=== PATIENT | male | born 1955 | race Caucasian/White ===

== ENCOUNTER 2016-06-08 20:33 | Inpatient (IN) | payer OTHER ==
[~2016-06-08] VITALS: Ht 188 cm; Wt 140.6 kg
[~2016-06-08 20:33] MED LIST: ALLO300T2 PO; ASPI-1035 PO; BENA10TA3 PO; FOLI-43 PO; HYDR12.54 PO; LISI-604 PO; MULT-1146 PO; Multivitamins,Ther W-Minerals PO; Nifedipine PO; OXYB5TAB11 PO; PANT40TA4 PO; TAMS-11 PO; THIA100T13 PO; TOLTERODINE PO
[2016-06-08] MEDS ORDERED: LORAZEPAM 2MG/ML CPJ IV ONE (22:45)
[2016-06-08 23:37] LABS: HEMATOCRIT. 36.6 % (42.0-52.0); HEMOGLOBIN. 12.4 g/dL (14.0-18.0); MEAN CORPUSCULAR HEMOGLOBIN 35.8 pg (28.0-32.0); MEAN CORPUSCULAR HGB CONC 33.8 g/dL (31.0-37.0); MEAN CORPUSCULAR VOLUME 105.7 fL (80.0-94.0); MEAN PLATELET VOLUME 8.9 fl (7.4-10.4); RED BLOOD CELL COUNT 3.47 mill/uL (4.7-6.1); RED CELL DISTRIBUTION WIDTH 15.3 % (11.6-14.6); WHITE BLOOD COUNT 4.2 x1000/uL (4.5-11.0)
[2016-06-08 23:46] LABS: DIFFERENTIAL COMMENT 1; PLATELET 50 x1000/uL (130-400)
[2016-06-08 23:54] LABS: AMMONIA 24 uMol/L (<32)
[2016-06-08 23:58] LABS: ALANINE AMINOTRANSFERASE 15 IU/L (13-61); ALBUMIN 2.3 g/dL (3.4-5.0); ANION GAP 12; CALCIUM 7.5 mg/dL (8.5-10.1); CARBON DIOXIDE 30 mEq/L (21-32); CHLORIDE 104 mEq/L (98-107); ETHANOL BLOOD 258 mg/dL; INDEX HEMOLYSI 1 (1-3); INDEX ICTERIC 1 (1-4); INDEX LIPEMIC 1 (1-3); NT PRO B-TYPE NATRIURETIC PEP 8 pg/mL (5-125); TROPONIN I < 0.02 ng/mL (0.00-0.04); UREA NITROGEN BLOOD 6 mg/dL (7-21); eGFR > 60 mL/min (>60)
[2016-06-08 23:58] LABS: CLARITY URINE CLEAR (CLEAR); COLOR URINE DARK YELLOW (YELLOW); GLUCOSE URINE NEGATIVE (NEGATIVE); KETONES URINE NEGATIVE (NEGATIVE); LEUKOCYTE ESTERASE URINE NEGATIVE (NEGATIVE); NITRITE URINE NEGATIVE (NEGATIVE); OCCULT BLOOD URINE NEGATIVE (NEGATIVE); PH URINE 5.5 (4.5-8.0); PROTEIN URINE NEGATIVE (NEGATIVE); SPECIFIC GRAVITY URINE 1.016 (1.005-1.030)
[2016-06-09] VITALS (7 sets, daily range): BP systolic 112–188; BP diastolic 74–104
[2016-06-09 00:42] LABS: BACTERIA URINE NONE SEEN; RBC URINE 0-2 /hpf (0-2); SQUAMOUS EPITHELIAL CELL URINE FEW /lpf (RARE/1+); WBC URINE 0-2 /hpf (0-2)
[2016-06-09 01:08] LABS: *AMPHETAMINES SCREEN URINE NEGATIVE (NEGATIVE); *BARBITURATES SCREEN URINE NEGATIVE (NEGATIVE); *BENZODIAZEPINES SCREEN URINE NEGATIVE (NEGATIVE); *COCAINE SCREEN URINE NEGATIVE (NEGATIVE); CANNABINOID URINE SCREEN NEGATIVE (NEGATIVE); ECSTASY MDMA SCREEN URINE NEGATIVE (NEGATIVE); METHADONE URINE SCREEN NEGATIVE (NEGATIVE); OPIATES URINE SCREEN NEGATIVE (NEGATIVE); PHENCYCLIDINE URINE SCREEN NEGATIVE (NEGATIVE)
[2016-06-09 03:05] LABS: ATYPICAL LYMPHOCYTES 1
[2016-06-09 03:07] LABS: PLATELET ESTIMATE DECREASED
[2016-06-09 07:06] LABS: HEPATITIS B SURFACE ANTIGEN NEGATIVE
[2016-06-09 07:20] LABS: HEPATITIS C VIR.AB 0.07 INDEXVAL (0.00-0.80)
[2016-06-09 07:34] LABS: HEPATITIS B CORE AB IGM NEGATIVE
[2016-06-09 07:36] LABS: HEPATITIS A AB IGM NEGATIVE (NEGATIVE)
[2016-06-09 07:52] LABS: ALANINE AMINOTRANSFERASE 14 IU/L (13-61); ALBUMIN 2.3 g/dL (3.4-5.0); ANION GAP 14; CALCIUM 7.4 mg/dL (8.5-10.1); CARBON DIOXIDE 27 mEq/L (21-32); CHLORIDE 104 mEq/L (98-107); INDEX HEMOLYSI 1 (1-3); INDEX ICTERIC 1 (1-4); INDEX LIPEMIC 1 (1-3); eGFR > 60 mL/min (>60)
[2016-06-09 07:53] LABS: UREA NITROGEN BLOOD 4 mg/dL (7-21)
[2016-06-09 07:56] LABS: HEMATOCRIT. 37.1 % (42.0-52.0); HEMOGLOBIN. 12.7 g/dL (14.0-18.0); MEAN CORPUSCULAR HEMOGLOBIN 35.8 pg (28.0-32.0); MEAN CORPUSCULAR HGB CONC 34.3 g/dL (31.0-37.0); MEAN CORPUSCULAR VOLUME 104.4 fL (80.0-94.0); MEAN PLATELET VOLUME 9.6 fl (7.4-10.4); RED BLOOD CELL COUNT 3.55 mill/uL (4.7-6.1); RED CELL DISTRIBUTION WIDTH 15.5 % (11.6-14.6); WHITE BLOOD COUNT 3.4 x1000/uL (4.5-11.0)
[2016-06-09 08:12] LABS: DIFFERENTIAL COMMENT 1
[2016-06-09 09:12] LABS: INR 1.3; PROTHROMBIN TIME 13.4 sec
[2016-06-09] MEDS ORDERED: CLONIDINE 0.1MG TABLET PO PRN (12:15)
[2016-06-09] MEDS ORDERED: ONDANSETRON HCL 4MG/2ML VIAL IV PRN (12:15)
[2016-06-09] MEDS ORDERED: IPRATROPIUM/ALBUTEROL 0.5-3(2.5)MG/3ML NEB INH PRN (12:15)
[2016-06-09] MEDS ORDERED: DIPHENHYDRAMINE 50MG/ML VIAL IV PRN (12:15)
[2016-06-09] MEDS: ACETAMINOPHEN 325MG TABLET PO PRN ×2 (13:38→20:23)
[2016-06-09] MEDS: OXYBUTYNIN CHLORIDE 5MG TABLET PO SCH (13:39)
[2016-06-09 15:29] LABS: PLATELET ESTIMATE MARKEDLY DECREASED
[2016-06-09] MEDS: ALLOPURINOL 300 MG TABLET PO SCH (17:36)
[2016-06-10] VITALS: BP 108/65
[2016-06-10 04:00] VITALS: BP 115/74
[2016-06-10 07:36] LABS: HEMATOCRIT. 37.7 % (42.0-52.0); MEAN CORPUSCULAR HEMOGLOBIN 35.9 pg (28.0-32.0); MEAN CORPUSCULAR HGB CONC 34.6 g/dL (31.0-37.0); MEAN CORPUSCULAR VOLUME 103.9 fL (80.0-94.0); MEAN PLATELET VOLUME 9.4 fl (7.4-10.4); RED BLOOD CELL COUNT 3.63 mill/uL (4.7-6.1); RED CELL DISTRIBUTION WIDTH 15.2 % (11.6-14.6); WHITE BLOOD COUNT 3.3 x1000/uL (4.5-11.0)
[2016-06-10 08:00] VITALS: BP 124/74
[2016-06-10 08:00] LABS: PLATELET 48 x1000/uL (130-400)
[2016-06-10 08:00] LABS: DIFFERENTIAL COMMENT 1
[2016-06-10 08:03] LABS: PLATELET 43 x1000/uL (130-400)
[2016-06-10 08:24] LABS: ALANINE AMINOTRANSFERASE 13 IU/L (13-61); ALBUMIN 2.2 g/dL (3.4-5.0); ANION GAP 15; CALCIUM 7.8 mg/dL (8.5-10.1); CARBON DIOXIDE 26 mEq/L (21-32); CHLORIDE 101 mEq/L (98-107); INDEX HEMOLYSI 1 (1-3); INDEX ICTERIC 2 (1-4); INDEX LIPEMIC 1 (1-3); UREA NITROGEN BLOOD 5 mg/dL (7-21); eGFR > 60 mL/min (>60)
[2016-06-10 08:27] LABS: NT PRO B-TYPE NATRIURETIC PEP 44 pg/mL (5-125); TROPONIN I < 0.02 ng/mL (0.00-0.04)
[2016-06-10] MEDS: OXYBUTYNIN CHLORIDE 5MG TABLET PO SCH (08:33)
[2016-06-10] MEDS: ALLOPURINOL 300 MG TABLET PO SCH ×2 (08:33→17:23)
[2016-06-10] MEDS: PANTOPRAZOLE 40MG DR TABLET PO SCH (08:34)
[2016-06-10] MEDS: LISINOPRIL 20MG TABLET PO SCH (08:34)
[2016-06-10] MEDS: TAMSULOSIN HCL 0.4MG SR CAPSULE PO SCH (08:34)
[2016-06-10] MEDS ORDERED: FOLIC ACID 1MG TABLET PO SCH (09:00)
[2016-06-10] MEDS ORDERED: BENAZEPRIL 10MG TABLET PO SCH (09:00)
[2016-06-10] MEDS ORDERED: NON FORMULARY PATIENT HOME MED EA XX SCH (09:45)
[2016-06-10] MEDS ORDERED: SODIUM CHLORIDE 0.45% 1,000 ML IV SCH (10:00)
[2016-06-10] MEDS ORDERED: MULTIVITAMINS,THER W-MINERALS TABLET PO SCH (10:00)
[2016-06-10] MEDS ORDERED: THIAMINE HCL 100MG TABLET PO SCH (10:00)
[2016-06-10 10:53] LABS: PLATELET ESTIMATE DECREASED
[2016-06-10 12:00] VITALS: BP 136/88
[2016-06-10] MEDS: ACETAMINOPHEN 325MG TABLET PO PRN (13:41)
[2016-06-10] MEDS ORDERED: FOLIC ACID 1 MG, THIAMINE HCL 100 MG, MVI, ADULT NO.1 10 ML in DEXTROSE 5% WATER 1,000 ML IV NR ×4 (15:00)
[2016-06-10] MEDS: CHLORDIAZEPOXIDE 5 MG CAPSULE PO SCH ×2 (15:03→21:03)
[2016-06-10 16:00] VITALS: BP 106/71
[2016-06-10 20:00] VITALS: BP 102/57
[2016-06-10] MEDS: HYDROCODONE/ACETAMINOPHEN 5/325MG TABLET PO PRN (22:03)
[2016-06-11] VITALS (7 sets, daily range): BP systolic 89–130; BP diastolic 57–81
[2016-06-11] MEDS: CHLORDIAZEPOXIDE 5 MG CAPSULE PO SCH ×3 (05:34→21:33)
[2016-06-11 07:24] LABS: CHLORIDE 100 mEq/L (98-107); INDEX HEMOLYSI 1 (1-3); INDEX ICTERIC 2 (1-4); INDEX LIPEMIC 1 (1-3)
[2016-06-11 07:32] LABS: ALBUMIN 2.3 g/dL (3.4-5.0); ANION GAP 14; CALCIUM 7.8 mg/dL (8.5-10.1); CARBON DIOXIDE 25 mEq/L (21-32); UREA NITROGEN BLOOD 7 mg/dL (7-21); eGFR > 60 mL/min (>60)
[2016-06-11 07:33] LABS: ALANINE AMINOTRANSFERASE 13 IU/L (13-61); MAGNESIUM 1.4 mg/dL (1.8-2.4)
[2016-06-11] MEDS: OXYBUTYNIN CHLORIDE 5MG TABLET PO SCH (07:53)
[2016-06-11] MEDS: PANTOPRAZOLE 40MG DR TABLET PO SCH (07:53)
[2016-06-11] MEDS: ALLOPURINOL 300 MG TABLET PO SCH ×2 (07:53→17:31)
[2016-06-11] MEDS: TAMSULOSIN HCL 0.4MG SR CAPSULE PO SCH (07:53)
[2016-06-11] MEDS: LISINOPRIL 20MG TABLET PO SCH (07:53)
[2016-06-11] MEDS ORDERED: POTASSIUM CHLORIDE 20MEQ TABLET SR PO NR (12:00)
[2016-06-11] MEDS ORDERED: LORAZEPAM 1MG TABLET PO PRN (13:00)
[2016-06-11] MEDS ORDERED: LORAZEPAM 2MG/ML CPJ IV PRN (13:15)
[2016-06-11] MEDS: LACTULOSE 20G/30ML UDC PO SCH ×2 (13:20→21:33)
[2016-06-11] MEDS ORDERED: MAGNESIUM 2 G PREMIX 50 ML IV NR (13:30)
[2016-06-11 13:53] LABS: ALPHA FETOPROTEIN TUMOR MARKER 4.4 ng/mL (0.0-8.3)
[2016-06-11] MEDS: SODIUM CHLORIDE 0.9% 1,000 ML IV SCH (13:58)
[2016-06-11 14:48] LABS: AMMONIA 25 uMol/L (<32); INDEX HEMOLYSI 2 (1-3)
[2016-06-11] MEDS ORDERED: LORAZEPAM 2MG/ML CPJ IV NR (17:30)
[2016-06-11] MEDS: METOPROLOL TARTRATE 25MG TABLET PO SCH (21:00)
[2016-06-11] MEDS: LORAZEPAM 2MG/ML CPJ IV PRN (23:50)
[2016-06-12 00:16] VITALS: BP 98/63
[2016-06-12] MEDS: HYDROCODONE/ACETAMINOPHEN 5/325MG TABLET PO PRN (01:27)
[2016-06-12] MEDS: LORAZEPAM 2MG/ML CPJ IV PRN ×2 (03:27→13:16)
[2016-06-12] MEDS ORDERED: HALOPERIDOL LACTATE 5MG/ML VIAL IM PRN (05:30)
[2016-06-12 05:39] VITALS: BP 96/67
[2016-06-12] MEDS: CHLORDIAZEPOXIDE 5 MG CAPSULE PO SCH ×3 (05:43→21:01)
[2016-06-12] MEDS: LACTULOSE 20G/30ML UDC PO SCH ×4 (05:43→20:53)
[2016-06-12 05:48] LABS: HEMOGLOBIN. 12.3 g/dL (14.0-18.0); MEAN CORPUSCULAR HEMOGLOBIN 35.9 pg (28.0-32.0); MEAN CORPUSCULAR HGB CONC 34.2 g/dL (31.0-37.0); MEAN PLATELET VOLUME 9.5 fl (7.4-10.4); PLATELET 54 x1000/uL (130-400); RED BLOOD CELL COUNT 3.43 mill/uL (4.7-6.1); RED CELL DISTRIBUTION WIDTH 15.3 % (11.6-14.6); WHITE BLOOD COUNT 3.6 x1000/uL (4.5-11.0)
[2016-06-12 06:15] LABS: DIFFERENTIAL COMMENT 1
[2016-06-12 06:31] LABS: ALBUMIN 2.4 g/dL (3.4-5.0); ANION GAP 17; CARBON DIOXIDE 23 mEq/L (21-32); CHLORIDE 102 mEq/L (98-107); INDEX HEMOLYSI 1 (1-3); INDEX ICTERIC 2 (1-4); INDEX LIPEMIC 1 (1-3)
[2016-06-12 06:40] LABS: ALANINE AMINOTRANSFERASE 15 IU/L (13-61); MAGNESIUM 1.6 mg/dL (1.8-2.4); UREA NITROGEN BLOOD 9 mg/dL (7-21); eGFR > 60 mL/min (>60)
[2016-06-12 08:00] VITALS: BP 146/93
[2016-06-12] MEDS: PANTOPRAZOLE 40MG DR TABLET PO SCH (10:25)
[2016-06-12] MEDS: OXYBUTYNIN CHLORIDE 5MG TABLET PO SCH (10:25)
[2016-06-12] MEDS: ALLOPURINOL 300 MG TABLET PO SCH ×2 (10:25→17:29)
[2016-06-12] MEDS: TAMSULOSIN HCL 0.4MG SR CAPSULE PO SCH (10:26)
[2016-06-12] MEDS: METOPROLOL TARTRATE 25MG TABLET PO SCH ×2 (10:26→20:54)
[2016-06-12] MEDS: LISINOPRIL 20MG TABLET PO SCH (10:26)
[2016-06-12] MEDS ORDERED: POTASSIUM CHLORIDE 20 MEQ/PACKET PO NR (10:31)
[2016-06-12 11:07] LABS: GIANT PLATELETS FEW
[2016-06-12 11:08] LABS: PLATELET ESTIMATE MARKEDLY DECREASED
[2016-06-12 12:00] VITALS: BP 124/103
[2016-06-12] MEDS ORDERED: MAGNESIUM 2 G PREMIX 50 ML IV NR (12:00)
[2016-06-12 13:31] LABS: IMMUNOGLOBULIN A 1105 mg/dL (61-437); IMMUNOGLOBULIN G 1375 mg/dL (700-1600); IMMUNOGLOBULIN M 193 mg/dL (20-172)
[2016-06-12 15:55] VITALS: BP 120/78
[2016-06-12 20:00] VITALS: BP 121/72
[2016-06-13] VITALS: BP 119/83
[2016-06-13] MEDS: SODIUM CHLORIDE 0.9% 1,000 ML IV SCH ×3 (00:23→21:04)
[2016-06-13 04:00] VITALS: BP 124/80
[2016-06-13] MEDS: LACTULOSE 20G/30ML UDC PO SCH ×3 (05:56→21:02)
[2016-06-13] MEDS: CHLORDIAZEPOXIDE 5 MG CAPSULE PO SCH ×3 (05:56→21:03)
[2016-06-13 06:19] LABS: CHLORIDE 103 mEq/L (98-107); INDEX HEMOLYSI 1 (1-3); INDEX ICTERIC 1 (1-4); INDEX LIPEMIC 1 (1-3)
[2016-06-13 06:26] LABS: HEMOGLOBIN. 12.1 g/dL (14.0-18.0); MEAN CORPUSCULAR HEMOGLOBIN 36.2 pg (28.0-32.0); MEAN CORPUSCULAR HGB CONC 33.7 g/dL (31.0-37.0); MEAN CORPUSCULAR VOLUME 107.5 fL (80.0-94.0); MEAN PLATELET VOLUME 9.7 fl (7.4-10.4); PLATELET 52 x1000/uL (130-400); RED BLOOD CELL COUNT 3.35 mill/uL (4.7-6.1); RED CELL DISTRIBUTION WIDTH 15.2 % (11.6-14.6); WHITE BLOOD COUNT 3.6 x1000/uL (4.5-11.0)
[2016-06-13 06:37] LABS: ALANINE AMINOTRANSFERASE 15 IU/L (13-61); ALBUMIN 2.1 g/dL (3.4-5.0); ANION GAP 12; CALCIUM 7.6 mg/dL (8.5-10.1); CARBON DIOXIDE 26 mEq/L (21-32); MAGNESIUM 1.8 mg/dL (1.8-2.4); UREA NITROGEN BLOOD 8 mg/dL (7-21); eGFR > 60 mL/min (>60)
[2016-06-13 07:21] LABS: DIFFERENTIAL COMMENT 1
[2016-06-13 08:00] VITALS: BP 145/82
[2016-06-13] MEDS: ALLOPURINOL 300 MG TABLET PO SCH ×2 (08:56→17:38)
[2016-06-13] MEDS: TAMSULOSIN HCL 0.4MG SR CAPSULE PO SCH (08:57)
[2016-06-13] MEDS: LISINOPRIL 20MG TABLET PO SCH (08:58)
[2016-06-13] MEDS: PANTOPRAZOLE 40MG DR TABLET PO SCH (08:59)
[2016-06-13] MEDS: METOPROLOL TARTRATE 25MG TABLET PO SCH ×2 (08:59→21:00)
[2016-06-13] MEDS: HYDROCODONE/ACETAMINOPHEN 5/325MG TABLET PO PRN ×2 (08:59→13:07)
[2016-06-13] MEDS: OXYBUTYNIN CHLORIDE 5MG TABLET PO SCH (08:59)
[2016-06-13] MEDS ORDERED: POTASSIUM CHLORIDE 20MEQ TABLET SR PO NR (11:00)
[2016-06-13 12:00] VITALS: BP 123/82
[2016-06-13 13:12] LABS: PLATELET ESTIMATE DECREASED
[2016-06-13 16:00] VITALS: BP 140/90
[2016-06-13 20:00] VITALS: BP 106/79
[2016-06-14] VITALS: BP 95/58
[2016-06-14 04:00] VITALS: BP 110/73
[2016-06-14] MEDS: LACTULOSE 20G/30ML UDC PO SCH ×2 (06:00→15:51)
[2016-06-14] MEDS: CHLORDIAZEPOXIDE 5 MG CAPSULE PO SCH ×2 (06:51→15:52)
[2016-06-14 08:00] VITALS: BP 144/97
[2016-06-14] MEDS: LISINOPRIL 20MG TABLET PO SCH (09:00)
[2016-06-14] MEDS: METOPROLOL TARTRATE 25MG TABLET PO SCH (09:00)
[2016-06-14] MEDS: SODIUM CHLORIDE 0.9% 1,000 ML IV SCH (09:21)
[2016-06-14] MEDS: TAMSULOSIN HCL 0.4MG SR CAPSULE PO SCH (09:28)
[2016-06-14] MEDS: HYDROCODONE/ACETAMINOPHEN 5/325MG TABLET PO PRN (09:28)
[2016-06-14] MEDS: OXYBUTYNIN CHLORIDE 5MG TABLET PO SCH (09:29)
[2016-06-14] MEDS: ALLOPURINOL 300 MG TABLET PO SCH ×2 (09:29→15:51)
[2016-06-14] MEDS: PANTOPRAZOLE 40MG DR TABLET PO SCH (09:29)
[2016-06-14 12:00] VITALS: BP 113/88
[2016-06-14 13:56] VITALS: BP 144/97
== END 2016-06-14 17:31 | disposition home health service (06) | DRG 280 ==
LOC: ER 20:35 → 7WST 06-09 02:17
PROVIDERS: ADMIT Internal Medicine; ATTEND Internal Medicine
PROC: 05H933Z Insertion of Infusion Device into Right Brachial Vein, Percutaneous Approach (ICD-10-PCS; principal; 2016-06-12)
PROC: B54MZZA Ultrasonography of Right Upper Extremity Veins, Guidance (ICD-10-PCS; 2016-06-12)
DX: K70.31 Alcoholic cirrhosis of liver with ascites (principal); G93.40 Encephalopathy, unspecified; D61.818 Other pancytopenia; E46 Unspecified protein-calorie malnutrition; K76.6 Portal hypertension; I11.9 Hypertensive heart disease without heart failure; K86.0 Alcohol-induced chronic pancreatitis; Z68.41 Body mass index [BMI] 40.0-44.9, adult; E83.42 Hypomagnesemia; E83.51 Hypocalcemia; E66.01 Morbid (severe) obesity due to excess calories; R00.0 Tachycardia, unspecified; K29.20 Alcoholic gastritis without bleeding; E86.0 Dehydration; D53.9 Nutritional anemia, unspecified; E87.6 Hypokalemia; E78.00 Pure hypercholesterolemia, unspecified; M10.00 Idiopathic gout, unspecified site; F10.239 Alcohol dependence with withdrawal, unspecified; Y90.9 Presence of alcohol in blood, level not specified; E11.65 Type 2 diabetes mellitus with hyperglycemia; E78.5 Hyperlipidemia, unspecified
CPT/HCPCS: 36415; 36569; 70450; 71010; 74176; 76937; 80053; 80305; 81001; 82040; 82105; 82140; 82784; 83036; 83735; 83880; 83921; 84443; 84484; 85025; 85049; 85610; 85730; 86334; 86705; 86709; 86803; 87040; 87086; 87186; 87340; 93005; 93306; 93970; 96374; 97162; 99285; C1725; C1893; G0482; J1630; J2060; J3411; J3475; J3490; J7030; J7070

== ENCOUNTER 2016-08-11 16:43 | Inpatient (IN) | payer OTHER ==
[~2016-08-11] VITALS: Ht 190.5 cm; Wt 141.5 kg
[~2016-08-11 16:43] MED LIST changes: -BENA10TA3 PO; -HYDR12.54 PO; -OXYB5TAB11 PO; -TOLTERODINE PO
[2016-08-11 18:04] LABS: CHLORIDE 101 mEq/L (98-107); HEMATOCRIT. 39.1 % (42.0-52.0); HEMOGLOBIN. 13.7 g/dL (14.0-18.0); MEAN CORPUSCULAR HEMOGLOBIN 35.6 pg (28.0-32.0); MEAN CORPUSCULAR VOLUME 101.8 fL (80.0-94.0); RED BLOOD CELL COUNT 3.84 mill/uL (4.7-6.1); RED CELL DISTRIBUTION WIDTH 15.5 % (11.6-14.6)
[2016-08-11 18:07] LABS: CARBON DIOXIDE 29 mEq/L (21-32)
[2016-08-11 18:08] LABS: INR 1.4; PROTHROMBIN TIME 14.5 sec
[2016-08-11 18:10] LABS: ETHANOL BLOOD 197 mg/dL
[2016-08-11 18:39] LABS: PLATELET ESTIMATE MARKEDLY DECREASED
[2016-08-11 18:41] LABS: MEAN PLATELET VOLUME 9.9 fl (7.4-10.4); PLATELET 38 x1000/uL (130-400)
[2016-08-11 19:35] LABS: CLARITY URINE CLEAR (CLEAR); COLOR URINE ORANGE (YELLOW); GLUCOSE URINE NEGATIVE (NEGATIVE); KETONES URINE TRACE (NEGATIVE); LEUKOCYTE ESTERASE URINE TRACE (NEGATIVE); NITRITE URINE POSITIVE (NEGATIVE); OCCULT BLOOD URINE TRACE (NEGATIVE); PH URINE 5.5 (4.5-8.0); PROTEIN URINE NEGATIVE (NEGATIVE)
[2016-08-11 19:46] LABS: *AMPHETAMINES SCREEN URINE NEGATIVE (NEGATIVE); *BARBITURATES SCREEN URINE NEGATIVE (NEGATIVE); *BENZODIAZEPINES SCREEN URINE NEGATIVE (NEGATIVE); *COCAINE SCREEN URINE NEGATIVE (NEGATIVE); CANNABINOID URINE SCREEN NEGATIVE (NEGATIVE); METHADONE URINE SCREEN NEGATIVE (NEGATIVE); OPIATES URINE SCREEN NEGATIVE (NEGATIVE); PHENCYCLIDINE URINE SCREEN NEGATIVE (NEGATIVE)
[2016-08-11] MEDS ORDERED: CEFTRIAXONE 1 G PREMIX 50 ML IV ONE (20:15)
[2016-08-11] MEDS ORDERED: MAGNESIUM/ALUMINUM HYDROXIDE/SIMETHICONE 30ML UDC PO PRN (23:45)
[2016-08-11] MEDS ORDERED: IPRATROPIUM/ALBUTEROL 0.5-3(2.5)MG/3ML NEB INH PRN (23:45)
[2016-08-11] MEDS ORDERED: DIPHENHYDRAMINE 50MG/ML VIAL IV PRN (23:45)
[2016-08-11] MEDS ORDERED: CLONIDINE 0.1MG TABLET PO PRN (23:45)
[2016-08-11] MEDS ORDERED: CEFTRIAXONE 1 G PREMIX 50 ML IV SCH (23:45)
[2016-08-11] MEDS ORDERED: ACETAMINOPHEN 325MG TABLET PO PRN (23:45)
[2016-08-11] MEDS ORDERED: ACETAMINOPHEN 650MG SUPP PR PRN (23:45)
[2016-08-11] MEDS ORDERED: GUAIFENESIN 200MG/10ML SUGAR FREE UDC PO PRN (23:45)
[2016-08-11] MEDS ORDERED: ACETAMINOPHEN 650MG/20.3ML UDC GT PRN (23:45)
[2016-08-11] MEDS ORDERED: ONDANSETRON HCL 4MG/2ML VIAL IV PRN (23:45)
[2016-08-11] MEDS ORDERED: DOCUSATE SODIUM 100MG CAPSULE PO PRN (23:45)
[2016-08-12 05:53] LABS: CARBON DIOXIDE 26 mEq/L (21-32); CHLORIDE 103 mEq/L (98-107)
[2016-08-12 05:54] LABS: HDL CHOLESTEROL 51 mg/dL (40-59); LDL CHOLESTEROL 56 mg/dL (5-100)
[2016-08-12 05:56] LABS: RED BLOOD CELL COUNT 3.74 mill/uL (4.7-6.1)
[2016-08-12 05:57] LABS: MEAN CORPUSCULAR HEMOGLOBIN 34.8 pg (28.0-32.0); MEAN CORPUSCULAR VOLUME 101.7 fL (80.0-94.0); RED CELL DISTRIBUTION WIDTH 15.8 % (11.6-14.6)
[2016-08-12 05:58] LABS: PLATELET 47 x1000/uL (130-400)
[2016-08-12 06:05] LABS: PLATELET ESTIMATE DECREASED
[2016-08-12 08:20] VITALS: BP 144/83
[2016-08-12] MEDS ORDERED: NA PHOS,M-B/NA PHOS,DI-BA ENEMA 118ML PR PRN (09:00)
[2016-08-12] MEDS ORDERED: MVI, ADULT NO.1 10 ML, FOLIC ACID 1 MG, THIAMINE HCL 100 MG in SODIUM CHLORIDE 0.9% 1,0... IV SCH ×4 (10:00)
[2016-08-12] MEDS: FUROSEMIDE 40MG/4ML VIAL IV SCH (11:07)
[2016-08-12] MEDS: SODIUM CHLORIDE 0.9% INJ 3ML FLUSH IVF SCH ×3 (11:10→19:45)
[2016-08-12 12:00] VITALS: BP 124/79
[2016-08-12] MEDS ORDERED: POTASSIUM CHLORIDE 20MEQ TABLET SR PO NR (14:00)
[2016-08-12 16:00] VITALS: BP 126/86
[2016-08-12] MEDS: CEFTRIAXONE 1 G PREMIX 50 ML IV SCH (19:45)
[2016-08-12 20:00] VITALS: BP 107/85
[2016-08-13] VITALS (10 sets, daily range): BP systolic 97–120; BP diastolic 66–95
[2016-08-13 05:29] LABS: INR 1.5; PROTHROMBIN TIME 15.8 sec
[2016-08-13] MEDS: SODIUM CHLORIDE 0.9% INJ 3ML FLUSH IVF SCH ×3 (05:53→21:43)
[2016-08-13] MEDS: FUROSEMIDE 40MG/4ML VIAL IV SCH (08:17)
[2016-08-13] MEDS ORDERED: PHYTONADIONE 10MG/ML AMP SUBCUT NR (09:15)
[2016-08-13] MEDS: CEFTRIAXONE 1 G PREMIX 50 ML IV SCH (19:53)
[2016-08-14] VITALS (9 sets, daily range): BP systolic 109–145; BP diastolic 67–82
[2016-08-14] MEDS: SODIUM CHLORIDE 0.9% INJ 3ML FLUSH IVF SCH ×2 (05:38→14:08)
[2016-08-14] MEDS ORDERED: LIDOCAINE HCL 1% 20ML VIAL (Pyxis) INJ ONE (06:00)
[2016-08-14] MEDS ORDERED: SODIUM BICARBONATE 4.2% 5 MEQ/10 ML DISP.SYRIN IV ONE (06:00)
[2016-08-14 06:58] LABS: INR 1.5; PROTHROMBIN TIME 15.2 sec
[2016-08-14] MEDS: FUROSEMIDE 40MG/4ML VIAL IV SCH (08:18)
[2016-08-14] MEDS: HYDROCODONE/ACETAMINOPHEN 5/325MG TABLET PO PRN ×2 (08:19→17:45)
== END 2016-08-14 18:31 | disposition home or self-care (01) | DRG 280 ==
LOC: ER 16:44 → 7WST 22:48 → EDBEDREQSVC 08-12 05:58 → ENRESERV 08-12 06:43
PROVIDERS: ADMIT Family Medicine; ATTEND Family Medicine
PROC: 30233R1 Transfusion of Nonautologous Platelets into Peripheral Vein, Percutaneous Approach (ICD-10-PCS; 2016-08-12)
PROC: 0W9G3ZZ Drainage of Peritoneal Cavity, Percutaneous Approach (ICD-10-PCS; principal; 2016-08-14)
DX: K70.31 Alcoholic cirrhosis of liver with ascites (principal); D68.9 Coagulation defect, unspecified; D61.818 Other pancytopenia; I12.0 Hypertensive chronic kidney disease with stage 5 chronic kidney disease or end stage renal disease; N18.6 End stage renal disease; K76.6 Portal hypertension; D69.59 Other secondary thrombocytopenia; E11.22 Type 2 diabetes mellitus with diabetic chronic kidney disease; E66.01 Morbid (severe) obesity due to excess calories; D63.8 Anemia in other chronic diseases classified elsewhere; E87.6 Hypokalemia; E78.5 Hyperlipidemia, unspecified; K80.20 Calculus of gallbladder without cholecystitis without obstruction; E78.00 Pure hypercholesterolemia, unspecified; F10.10 Alcohol abuse, uncomplicated; G89.29 Other chronic pain; K21.9 Gastro-esophageal reflux disease without esophagitis; K82.8 Other specified diseases of gallbladder; M10.9 Gout, unspecified; Y90.6 Blood alcohol level of 120-199 mg/100 ml; Z96.659 Presence of unspecified artificial knee joint; Z68.39 Body mass index [BMI] 39.0-39.9, adult
CPT/HCPCS: 36415; 49083; 71010; 74176; 80053; 80061; 80305; 81001; 83690; 84315; 85025; 85049; 85610; 86850; 86900; 87070; 87205; 87493; 89050; 93005; 96365; 96366; 99285; A6261; G0482; J0696; J1940; J2405; J3411; J3430; J3490; J7030; J7040; J7050; P9034

== ENCOUNTER 2017-04-18 10:39 | Inpatient (IN) | payer MEDICAID, OTHER ==
[~2017-04-18] VITALS: Ht 182.9 cm; Wt 147.9 kg
[2017-04-18] VITALS (17 sets, daily range): BP systolic 111–161; BP diastolic 55–118
[~2017-04-18 10:39] MED LIST changes: -ASPI-1035 PO; +ASPI-1159 PO; +SIMETHICONE 40 MG/0.6 ML 30ML ONE; +SODIUM CHLORIDE 0.9% 10ML VIAL ONE
[2017-04-18 11:20] LABS: HEMATOCRIT. 38.8 % (42.0-52.0); HEMOGLOBIN. 13.1 g/dL (14.0-18.0); MEAN CORPUSCULAR HEMOGLOBIN 34.9 pg (28.0-32.0); MEAN CORPUSCULAR VOLUME 103.3 fL (80.0-94.0); MEAN PLATELET VOLUME 9.4 fl (7.4-10.4); PLATELET 76 x1000/uL (130-400); RED BLOOD CELL COUNT 3.75 mill/uL (4.7-6.1); RED CELL DISTRIBUTION WIDTH 13.7 % (11.6-14.6)
[2017-04-18 11:25] LABS: CHLORIDE 101 mEq/L (98-107)
[2017-04-18 11:28] LABS: INR 1.4; PARTIAL THROMBOPLASTIN TIME 29.1 sec (23.4-31.0); PROTHROMBIN TIME 14.3 sec (9.4-11.6)
[2017-04-18] MEDS ORDERED: ONDANSETRON HCL 4MG/2ML INJ IV ONE (11:30)
[2017-04-18] MEDS ORDERED: ERYTHROMYCIN LACTOBIONATE 500 MG in SODIUM CHLORIDE 0.9% 100 ML IV STA (11:52)
[2017-04-18] MEDS ORDERED: PANTOPRAZOLE SODIUM 40 MG/VIAL IV ONE (12:00)
[2017-04-18 12:10] LABS: PLATELET ESTIMATE DECREASED
[2017-04-18] MEDS ORDERED: MIDAZOLAM HCL 5 MG/5 ML VIAL IV ONE (12:35)
[2017-04-18] MEDS ORDERED: FENTANYL CITRATE/PF 50MCG/ML 2ML VIAL IV ONE (12:35)
[2017-04-18] MEDS ORDERED: FENTANYL CITRATE/PF 50MCG/ML 2ML VIAL ONE (12:44)
[2017-04-18] MEDS ORDERED: MIDAZOLAM HCL 5 MG/5 ML VIAL ONE (12:44)
[2017-04-18] MEDS: DEXT 5%/0.45% NACL 1000ML 1,000 ML IV SCH ×2 (13:06→21:00)
[2017-04-18] MEDS ORDERED: HYDROCODONE/ACETAMINOPHEN 5/325MG TABLET PO PRN (13:15)
[2017-04-18] MEDS ORDERED: LORAZEPAM 2MG/ML CPJ IV PRN (13:15)
[2017-04-18] MEDS ORDERED: NA PHOS,M-B/NA PHOS,DI-BA ENEMA 118ML PR PRN (13:15)
[2017-04-18] MEDS ORDERED: CLONIDINE 0.1MG TABLET PO PRN (13:15)
[2017-04-18] MEDS ORDERED: DIPHENHYDRAMINE 50MG/ML VIAL IV PRN (13:15)
[2017-04-18] MEDS ORDERED: ACETAMINOPHEN 325MG TABLET PO PRN (13:15)
[2017-04-18] MEDS ORDERED: MORPHINE SULFATE 2 MG/ML CPJ (NOT FOR IM USE) IV PRN (13:15)
[2017-04-18] MEDS ORDERED: GUAIFENESIN 200MG/10ML SUGAR FREE UDC PO PRN (13:15)
[2017-04-18] MEDS ORDERED: IPRATROPIUM/ALBUTEROL 0.5-3(2.5)MG/3ML NEB INH PRN (13:15)
[2017-04-18] MEDS ORDERED: DOCUSATE SODIUM 100MG CAPSULE PO PRN (13:15)
[2017-04-18] MEDS ORDERED: MAGNESIUM/ALUMINUM HYDROXIDE/SIMETHICONE 30ML UDC PO PRN (13:15)
[2017-04-18 14:29] LABS: HEMATOCRIT 37.5 % (42.0-52.0); HEMOGLOBIN 12.6 g/dL (14.0-18.0)
[2017-04-18 14:45] LABS: CHLORIDE 103 mEq/L (98-107)
[2017-04-18] MEDS: ONDANSETRON HCL 4MG/2ML INJ IV PRN (16:45)
[2017-04-18 17:16] LABS: HEMATOCRIT 36.4 % (42.0-52.0); HEMOGLOBIN 12.4 g/dL (14.0-18.0)
[2017-04-18] MEDS: PANTOPRAZOLE 80 MG in SODIUM CHLORIDE 0.9% 100 ML IV SCH (19:47)
[2017-04-18] MEDS ORDERED: OCTREOTIDE ACETATE 50 MCG/ML 1ML IV SCH (23:15)
[2017-04-18] MEDS ORDERED: LORAZEPAM 2MG/ML CPJ IM PRN (23:15)
[2017-04-19] VITALS (57 sets, daily range): BP systolic 103–160; BP diastolic 36–110
[2017-04-19] MEDS ORDERED: OCTREOTIDE 1,000 MCG in SODIUM CHLORIDE 0.9% 100 ML IV PRN ×2
[2017-04-19] MEDS: OCTREOTIDE 1,000 MCG in SODIUM CHLORIDE 0.9% 100 ML IV PRN ×2 (00:34→11:22)
[2017-04-19 05:20] LABS: EOSINOPHILS % 0.2 % (0.0-5.0); HEMATOCRIT. 35.5 % (42.0-52.0); HEMOGLOBIN. 12.1 g/dL (14.0-18.0); MEAN CORPUSCULAR HEMOGLOBIN 34.3 pg (28.0-32.0); MEAN CORPUSCULAR VOLUME 100.2 fL (80.0-94.0); MEAN PLATELET VOLUME 10.3 fl (7.4-10.4); MONOCYTES % 13.9 % (2.0-8.0); NEUTROPHILS % 62.9 % (40.0-76.0); PLATELET 55 x1000/uL (130-400); RED BLOOD CELL COUNT 3.54 mill/uL (4.7-6.1); RED CELL DISTRIBUTION WIDTH 15.6 % (11.6-14.6)
[2017-04-19] MEDS: PANTOPRAZOLE 80 MG in SODIUM CHLORIDE 0.9% 100 ML IV SCH ×3 (05:35→22:48)
[2017-04-19 06:13] LABS: CHLORIDE 103 mEq/L (98-107); HDL CHOLESTEROL 46 mg/dL (40-59); LDL CHOLESTEROL 40 mg/dL (5-100); T4 FREE 1.08 ng/dL (0.76-1.46)
[2017-04-19] MEDS: ONDANSETRON HCL 4MG/2ML INJ IV PRN ×2 (08:46→16:33)
[2017-04-19] MEDS: THIAMINE HCL 100MG TABLET PO SCH ×2 (09:00→10:09)
[2017-04-19] MEDS: MULTIVITAMINS,THER W-MINERALS TABLET PO SCH (10:09)
[2017-04-19 11:00] LABS: HEPATITIS B SURFACE ANTIGEN NEGATIVE
[2017-04-19 11:29] LABS: HEPATITIS A AB IGM NEGATIVE (NEGATIVE)
[2017-04-19 11:52] LABS: HEMATOCRIT 32.6 % (42.0-52.0); HEMOGLOBIN 11.1 g/dL (14.0-18.0)
[2017-04-19 12:15] LABS: T4 FREE 0.97 ng/dL (0.76-1.46)
[2017-04-19] MEDS ORDERED: LIDOCAINE HCL 1% 20ML VIAL (Pyxis) INJ ONE (12:26)
[2017-04-19] MEDS ORDERED: SODIUM BICARBONATE 4% (2.4MEQ) 5ML VIAL IV ONE (12:27)
[2017-04-19 12:47] LABS: INR 1.5; PROTHROMBIN TIME 15.9 sec (9.4-11.6)
[2017-04-19 15:40] LABS: CREATINE KINASE MB FRACTION 2.8 ng/mL (0.5-3.6)
[2017-04-19] MEDS: LACTULOSE 20G/30ML UDC PO SCH (16:33)
[2017-04-19] MEDS: DEXT 5%/0.45% NACL 1000ML 1,000 ML IV SCH (20:23)
[2017-04-19 22:07] LABS: CREATINE KINASE MB FRACTION 1.9 ng/mL (0.5-3.6)
[2017-04-20] VITALS (36 sets, daily range): BP systolic 105–156; BP diastolic 53–96
[2017-04-20 05:27] LABS: BASOPHILS % 2.2 % (0.0-2.0); EOSINOPHILS % 3.4 % (0.0-5.0); HEMATOCRIT. 32.6 % (42.0-52.0); LYMPHOCYTES % 28.4 % (20.0-50.0); MEAN CORPUSCULAR HEMOGLOBIN 34.2 pg (28.0-32.0); MEAN CORPUSCULAR VOLUME 100.8 fL (80.0-94.0); MEAN PLATELET VOLUME 9.9 fl (7.4-10.4); MONOCYTES % 14.2 % (2.0-8.0); NEUTROPHILS % 51.8 % (40.0-76.0); RED BLOOD CELL COUNT 3.23 mill/uL (4.7-6.1); RED CELL DISTRIBUTION WIDTH 15.9 % (11.6-14.6)
[2017-04-20 05:41] LABS: PLATELET 40 x1000/uL (130-400)
[2017-04-20 05:56] LABS: CHLORIDE 102 mEq/L (98-107); CREATINE KINASE 265 IU/L (39-308); CREATINE KINASE MB FRACTION 1.5 ng/mL (0.5-3.6)
[2017-04-20] MEDS: LACTULOSE 20G/30ML UDC PO SCH ×4 (08:12→23:09)
[2017-04-20] MEDS: THIAMINE HCL 100MG TABLET PO SCH ×2 (08:12)
[2017-04-20] MEDS: MULTIVITAMINS,THER W-MINERALS TABLET PO SCH (08:12)
[2017-04-20] MEDS: ONDANSETRON HCL 4MG/2ML INJ IV PRN (08:16)
[2017-04-20] MEDS: PANTOPRAZOLE SODIUM 40 MG/VIAL IV SCH ×2 (10:18→21:00)
[2017-04-20] MEDS: OCTREOTIDE 1,000 MCG in SODIUM CHLORIDE 0.9% 100 ML IV PRN (11:23)
[2017-04-20] MEDS: DEXT 5%/0.45% NACL 1000ML 1,000 ML IV SCH ×2 (11:24→15:06)
[2017-04-20] MEDS ORDERED: POTASSIUM CHLORIDE INJ 40 MEQ in DEXT 5% WATER 250 ML IV NR (15:30)
[2017-04-21] VITALS: BP 123/75
[2017-09-13] MEDS ORDERED: CEPH500C2 PO (09:21)
[2017-09-13] MEDS ORDERED: LACT10SO7 PO (09:21)
[2017-10-19] MEDS ORDERED: TAMS0.4C31 PO (20:32)
[2017-10-19] MEDS ORDERED: FOLI-43 PO (20:32)
== END 2017-04-21 02:21 | disposition short-term general hospital (02) | DRG 264 ==
LOC: ER 10:59 → MICUSO 11:35 → EDBEDREQ 11:36 → ENRESERV 19:08 → 5EST 04-20 14:31
PROVIDERS: ADMIT Internal Medicine; ATTEND Internal Medicine
PROC: 06L38CZ Occlusion of Esophageal Vein with Extraluminal Device, Via Natural or Artificial Opening Endoscopic (ICD-10-PCS; principal; 2017-04-18)
PROC: 30233N1 Transfusion of Nonautologous Red Blood Cells into Peripheral Vein, Percutaneous Approach (ICD-10-PCS; 2017-04-18)
PROC: 0W9G3ZX Drainage of Peritoneal Cavity, Percutaneous Approach, Diagnostic (ICD-10-PCS; 2017-04-19)
DX: K70.31 Alcoholic cirrhosis of liver with ascites (principal); I85.11 Secondary esophageal varices with bleeding; D68.4 Acquired coagulation factor deficiency; K76.6 Portal hypertension; D69.59 Other secondary thrombocytopenia; R65.10 Systemic inflammatory response syndrome (SIRS) of non-infectious origin without acute organ dysfunction; E46 Unspecified protein-calorie malnutrition; Z68.41 Body mass index [BMI] 40.0-44.9, adult; K80.21 Calculus of gallbladder without cholecystitis with obstruction; D64.9 Anemia, unspecified; E11.9 Type 2 diabetes mellitus without complications; F10.20 Alcohol dependence, uncomplicated; D75.89 Other specified diseases of blood and blood-forming organs; E66.9 Obesity, unspecified; E78.00 Pure hypercholesterolemia, unspecified; E78.5 Hyperlipidemia, unspecified; I10 Essential (primary) hypertension; K44.9 Diaphragmatic hernia without obstruction or gangrene; Z79.82 Long term (current) use of aspirin; Z79.899 Other long term (current) drug therapy
CPT/HCPCS: 36415; 49083; 76700; 80048; 80061; 80076; 82040; 82105; 82140; 82248; 82550; 82553; 83036; 83615; 83880; 84439; 84443; 84481; 84484; 85014; 85018; 85379; 86705; 86709; 86803; 86850; 86900; 86920; 87340; 88108; 88312; 93005; 93306; 96374; 96375; 99291; A6261; C9113; J1364; J2250; J2270; J2354; J2405; J3010; J3480; J3490; J7030; J7050; J7060; P9016

== ENCOUNTER 2017-05-06 12:26 | Emergency (ER) | payer MEDICAID, OTHER ==
[~2017-05-06] VITALS: Ht 190.5 cm; Wt 147.0 kg
[~2017-05-06 12:26] MED LIST changes: -SIMETHICONE 40 MG/0.6 ML 30ML ONE; -SODIUM CHLORIDE 0.9% 10ML VIAL ONE
[2017-05-06 17:51] LABS: BASOPHILS % 3.1 % (0.0-2.0); EOSINOPHILS % 2.1 % (0.0-5.0); HEMATOCRIT. 33.9 % (42.0-52.0); HEMOGLOBIN. 11.5 g/dL (14.0-18.0); MEAN CORPUSCULAR VOLUME 100.6 fL (80.0-94.0); MEAN PLATELET VOLUME 9.3 fl (7.4-10.4); MONOCYTES % 14.8 % (2.0-8.0); PLATELET 125 x1000/uL (130-400); RED BLOOD CELL COUNT 3.37 mill/uL (4.7-6.1); RED CELL DISTRIBUTION WIDTH 15.3 % (11.6-14.6)
[2017-05-06 17:56] LABS: INR 1.3; PROTHROMBIN TIME 13.1 sec (9.4-11.6)
[2017-05-06 17:58] LABS: CHLORIDE 103 mEq/L (98-107)
[2017-05-06 18:05] LABS: TROPONIN I < 0.02 ng/mL (0.00-0.04)
[2017-05-06 20:09] LABS: CLARITY URINE CLEAR (CLEAR); COLOR URINE YELLOW (YELLOW); KETONES URINE NEGATIVE (NEGATIVE); LEUKOCYTE ESTERASE URINE NEGATIVE (NEGATIVE); NITRITE URINE NEGATIVE (NEGATIVE); OCCULT BLOOD URINE NEGATIVE (NEGATIVE); PH URINE 5.5 (4.5-8.0); PROTEIN URINE NEGATIVE (NEGATIVE); SPECIFIC GRAVITY URINE 1.012 (1.005-1.030)
[2017-05-06] MEDS ORDERED: NAPROXEN 375MG TABLET PO ONE (20:45)
[2017-05-06 21:10] VITALS: BP 121/69
== END 2017-05-06 21:13 | disposition home or self-care (01) ==
LOC: ER 13:24
DX: M79.601 Pain in right arm (principal); R20.0 Anesthesia of skin; I10 Essential (primary) hypertension; E78.00 Pure hypercholesterolemia, unspecified; E11.9 Type 2 diabetes mellitus without complications; E83.51 Hypocalcemia; M79.1 Myalgia; F14.10 Cocaine abuse, uncomplicated; Z79.82 Long term (current) use of aspirin
CPT/HCPCS: 36415; 71045; 80053; 81003; 84484; 85025; 85610; 93005; 99285

== ENCOUNTER 2017-10-01 11:55 | Emergency (ER) | payer OTHER ==
[~2017-10-01] VITALS: Ht 190.5 cm; Wt 150.0 kg
[~2017-10-01 11:55] MED LIST changes: -ALLO300T2 PO; +CEPH500C2 PO; +LACT10SO7 PO; -LISI-604 PO; -Multivitamins,Ther W-Minerals PO; -Nifedipine PO
[2017-10-01 12:59] LABS: HEMATOCRIT. 39.5 % (42.0-52.0); HEMOGLOBIN. 13.3 g/dL (14.0-18.0); MEAN CORPUSCULAR HEMOGLOBIN 32.3 pg (28.0-32.0); MEAN CORPUSCULAR VOLUME 96.2 fL (80.0-94.0); MEAN PLATELET VOLUME 8.2 fl (7.4-10.4); PLATELET 104 x1000/uL (130-400); RED CELL DISTRIBUTION WIDTH 15.7 % (11.6-14.6)
[2017-10-01 13:06] LABS: CHLORIDE 102 mEq/L (98-107); INR 1.3; PROTHROMBIN TIME 13.4 sec (9.4-11.6)
[2017-10-01] MEDS ORDERED: LIDOCAINE HCL 1% 20ML VIAL (Pyxis) INJ ONE ×2 (13:27→15:03)
[2017-10-01] MEDS ORDERED: SODIUM BICARBONATE 4% (2.4MEQ) 5ML VIAL IV ONE ×2 (13:30→15:04)
[2017-10-01 13:51] LABS: PLATELET ESTIMATE DECREASED
[2017-10-01 19:13] LABS: CLARITY URINE CLEAR (CLEAR); COLOR URINE DARK YELLOW (YELLOW); KETONES URINE TRACE (NEGATIVE); LEUKOCYTE ESTERASE URINE 1+ (NEGATIVE); NITRITE URINE POSITIVE (NEGATIVE); OCCULT BLOOD URINE NEGATIVE (NEGATIVE); PROTEIN URINE NEGATIVE (NEGATIVE); SPECIFIC GRAVITY URINE 1.027 (1.005-1.030)
[2017-10-01 21:15] VITALS: BP 132/69
== END 2017-10-01 21:15 | disposition home or self-care (01) ==
LOC: ER 12:07 → CANBEDREQ 21:46
DX: R10.9 Unspecified abdominal pain (principal); R18.8 Other ascites; E11.9 Type 2 diabetes mellitus without complications; I10 Essential (primary) hypertension; K74.60 Unspecified cirrhosis of liver; M79.601 Pain in right arm; F10.20 Alcohol dependence, uncomplicated; R06.02 Shortness of breath; R11.2 Nausea with vomiting, unspecified; R05 Cough; Y90.9 Presence of alcohol in blood, level not specified
CPT/HCPCS: 36415; 49083; 71045; 80053; 81003; 83605; 83880; 84484; 85025; 85610; 87070; 87205; 89050; 93005; 99285; J3490; Z7610

== ENCOUNTER 2017-12-09 13:54 | Emergency (ER) | payer OTHER ==
[~2017-12-09] VITALS: Ht 182.9 cm; Wt 140.0 kg
[~2017-12-09 13:54] MED LIST changes: -TAMS-11 PO; +TAMS0.4C31 PO
[2017-12-09 15:34] LABS: HEMATOCRIT. 44.1 % (42.0-52.0); HEMOGLOBIN. 15.2 g/dL (14.0-18.0); MEAN CORPUSCULAR HEMOGLOBIN 33.8 pg (28.0-32.0); MEAN CORPUSCULAR VOLUME 98.3 fL (80.0-94.0); MEAN PLATELET VOLUME 7.6 fl (7.4-10.4); PLATELET 143 x1000/uL (130-400); RED BLOOD CELL COUNT 4.48 mill/uL (4.7-6.1); RED CELL DISTRIBUTION WIDTH 14.9 % (11.6-14.6)
[2017-12-09 15:41] LABS: INR 1.3; PARTIAL THROMBOPLASTIN TIME 29.5 sec (23.4-31.0); PROTHROMBIN TIME 12.7 sec (9.1-11.1)
[2017-12-09 15:42] LABS: CHLORIDE 95 mEq/L (98-107)
[2017-12-09 15:44] LABS: ETHANOL BLOOD < 10 mg/dL
[2017-12-09 16:22] LABS: PLATELET ESTIMATE NORMAL
[2017-12-09 17:02] LABS: CLARITY URINE CLEAR (CLEAR); COLOR URINE DARK YELLOW (YELLOW); KETONES URINE TRACE (NEGATIVE); LEUKOCYTE ESTERASE URINE TRACE (NEGATIVE); NITRITE URINE POSITIVE (NEGATIVE); OCCULT BLOOD URINE 2+ (NEGATIVE); PH URINE 5.5 (4.5-8.0); PROTEIN URINE TRACE (NEGATIVE); SPECIFIC GRAVITY URINE 1.025 (1.005-1.030)
[2017-12-09 18:30] VITALS: BP 115/70
== END 2017-12-09 18:40 | disposition home or self-care (01) ==
LOC: ER 14:10 → CANRESERV 15:25 → ENRESERV 15:25 → CANBEDREQ 18:32 → ER 18:40
DX: R31.0 Gross hematuria (principal); K70.31 Alcoholic cirrhosis of liver with ascites; I10 Essential (primary) hypertension; R94.31 Abnormal electrocardiogram [ECG] [EKG]; M19.90 Unspecified osteoarthritis, unspecified site; E78.00 Pure hypercholesterolemia, unspecified; K21.9 Gastro-esophageal reflux disease without esophagitis; E88.09 Other disorders of plasma-protein metabolism, not elsewhere classified; E11.9 Type 2 diabetes mellitus without complications; Z79.82 Long term (current) use of aspirin; Z79.84 Long term (current) use of oral hypoglycemic drugs
CPT/HCPCS: 36415; 51702; 71045; 80053; 81003; 83690; 85025; 85610; 85730; 86850; 86900; 86901; 87086; 93005; 99285; G0482; A4315

== ENCOUNTER 2017-12-24 09:50 | Inpatient (IN) | payer OTHER, MEDICAID ==
[~2017-12-24] VITALS: Ht 190.5 cm; Wt 124.7 kg
[2017-12-24 11:55] LABS: HEMATOCRIT. 41.6 % (42.0-52.0); HEMOGLOBIN. 14.4 g/dL (14.0-18.0); MEAN CORPUSCULAR HEMOGLOBIN 34.2 pg (28.0-32.0); MEAN CORPUSCULAR VOLUME 98.5 fL (80.0-94.0); MEAN PLATELET VOLUME 7.8 fl (7.4-10.4); PLATELET 140 x1000/uL (130-400); RED BLOOD CELL COUNT 4.22 mill/uL (4.7-6.1); RED CELL DISTRIBUTION WIDTH 14.9 % (11.6-14.6)
[2017-12-24 12:03] LABS: CHLORIDE 95 mEq/L (98-107)
[2017-12-24 12:04] LABS: INR 1.3; PARTIAL THROMBOPLASTIN TIME 28.9 sec (23.4-31.0); PROTHROMBIN TIME 13.3 sec (9.1-11.1)
[2017-12-24 12:30] LABS: PLATELET ESTIMATE NORMAL
[2017-12-24] MEDS ORDERED: SODIUM BICARBONATE 4% (2.4MEQ) 5ML VIAL IV ONE (13:45)
[2017-12-24] MEDS ORDERED: LIDOCAINE HCL 1% 20ML VIAL (Pyxis) INJ ONE (13:46)
[2017-12-24 16:05] LABS: CLARITY URINE CLEAR (CLEAR); COLOR URINE ORANGE (YELLOW); KETONES URINE TRACE (NEGATIVE); LEUKOCYTE ESTERASE URINE TRACE (NEGATIVE); NITRITE URINE POSITIVE (NEGATIVE); OCCULT BLOOD URINE NEGATIVE (NEGATIVE); PH URINE 5.5 (4.5-8.0); PROTEIN URINE TRACE (NEGATIVE); SPECIFIC GRAVITY URINE 1.024 (1.005-1.030)
[2017-12-24 16:33] LABS: *AMPHETAMINES SCREEN URINE NEGATIVE (NEGATIVE); *BARBITURATES SCREEN URINE NEGATIVE (NEGATIVE); *BENZODIAZEPINES SCREEN URINE NEGATIVE (NEGATIVE); *COCAINE SCREEN URINE NEGATIVE (NEGATIVE); CANNABINOID URINE SCREEN NEGATIVE (NEGATIVE); METHADONE URINE SCREEN NEGATIVE (NEGATIVE); OPIATES URINE SCREEN NEGATIVE (NEGATIVE); PHENCYCLIDINE URINE SCREEN NEGATIVE (NEGATIVE)
[2017-12-24] MEDS ORDERED: HYDROCODONE/APAP 7.5/325MG 1 TAB TABLET PO ONE (19:00)
[2017-12-24] MEDS ORDERED: POTASSIUM CHLORIDE 10MEQ TABLET SR PO SCH (20:45)
[2017-12-24 21:12] VITALS: BP 124/72
[2017-12-24 21:14] VITALS: BP 124/72
[2017-12-24] MEDS ORDERED: FURO-152 PO (21:20)
[2017-12-24] MEDS ORDERED: DOCUSATE SODIUM 100MG CAPSULE PO PRN (22:00)
[2017-12-24] MEDS ORDERED: CLONIDINE 0.1MG TABLET PO PRN (22:00)
[2017-12-24] MEDS ORDERED: CEFTRIAXONE 1 G PREMIX 50 ML IV SCH (22:00)
[2017-12-24] MEDS ORDERED: IPRATROPIUM/ALBUTEROL 0.5-3(2.5)MG/3ML NEB INH PRN (22:00)
[2017-12-24] MEDS ORDERED: HYDROCODONE/ACETAMINOPHEN 5/325MG TABLET PO PRN (22:00)
[2017-12-24] MEDS ORDERED: ACETAMINOPHEN 325MG TABLET PO PRN (22:00)
[2017-12-24] MEDS ORDERED: MAGNESIUM/ALUMINUM HYDROXIDE/SIMETHICONE 30ML UDC PO PRN (22:00)
[2017-12-24] MEDS ORDERED: DEXTROSE 50% WATER 50ML SYRINGE IV PRN (22:15)
[2017-12-24] MEDS: CEFTRIAXONE 1 G PREMIX 50 ML IV SCH (22:51)
[2017-12-24] MEDS: ZOLPIDEM TARTRATE 5MG TABLET PO PRN (23:54)
[2017-12-25] VITALS (7 sets, daily range): BP systolic 93–125; BP diastolic 55–80
[2017-12-25] MEDS: BLOOD SUGAR DIAGNOSTIC STRIP TEST SCH ×4 (07:40→20:38)
[2017-12-25 07:53] LABS: HEMOGLOBIN. 14.3 g/dL (14.0-18.0); MEAN CORPUSCULAR HEMOGLOBIN 34.2 pg (28.0-32.0); MEAN PLATELET VOLUME 7.7 fl (7.4-10.4); PLATELET 116 x1000/uL (130-400); RED BLOOD CELL COUNT 4.18 mill/uL (4.7-6.1); RED CELL DISTRIBUTION WIDTH 14.8 % (11.6-14.6)
[2017-12-25 07:58] LABS: CHLORIDE 95 mEq/L (98-107)
[2017-12-25 08:02] LABS: AMMONIA 50 uMol/L (<32)
[2017-12-25 08:09] LABS: CREATINE KINASE 76 IU/L (39-308); CREATINE KINASE MB FRACTION < 1.0 ng/mL (0.5-3.6); HDL CHOLESTEROL 21 mg/dL (40-59); LDL CHOLESTEROL 79 mg/dL (5-100)
[2017-12-25] MEDS: INSULIN LISPRO 100 UNITS/ML SUBCUT SCH ×4 (08:10→20:39)
[2017-12-25] MEDS ORDERED: MEDICATION NOT ON FORMULARY EA (Folic Acid 1 MG) PO SCH (09:00)
[2017-12-25] MEDS: MULTIVITAMINS,THER W-MINERALS TABLET PO SCH (09:00)
[2017-12-25] MEDS ORDERED: MEDICATION NOT ON FORMULARY EA (Multivitamin (Multi Vitamin Daily) 1 TAB) PO SCH (09:00)
[2017-12-25] MEDS ORDERED: POTASSIUM CHLORIDE 20MEQ TABLET SR PO SCH (09:00)
[2017-12-25] MEDS ORDERED: MEDICATION NOT ON FORMULARY EA (Pantoprazole Sodium 40 MG) PO SCH (09:00)
[2017-12-25] MEDS ORDERED: THIAMINE HCL 100 MG PO SCH (09:00)
[2017-12-25] MEDS ORDERED: KCL 20MEQ/100ML PREMIX 100 ML IV NR (09:00)
[2017-12-25] MEDS ORDERED: MEDICATION NOT ON FORMULARY EA (Furosemide (Lasix) 20 MG) PO SCH (09:00)
[2017-12-25] MEDS ORDERED: MAGNESIUM 2 G PREMIX 50 ML IV ONE (10:15)
[2017-12-25] MEDS: FOLIC ACID 1MG TABLET PO SCH (10:18)
[2017-12-25] MEDS: FUROSEMIDE 20MG TABLET PO SCH (10:18)
[2017-12-25] MEDS: THIAMINE HCL 100MG TABLET PO SCH (10:18)
[2017-12-25] MEDS: POTASSIUM CHLORIDE 20MEQ TABLET SR PO SCH ×2 (10:18→13:57)
[2017-12-25] MEDS: PANTOPRAZOLE 40MG DR TABLET PO SCH (10:18)
[2017-12-25 11:50] LABS: PLATELET ESTIMATE SLIGHTLY DECREASED
[2017-12-25] MEDS ORDERED: MAGNESIUM SULFATE 2 GM in DEXTROSE 5% WATER 50 ML IV NR (12:30)
[2017-12-25] MEDS: LACTULOSE 20G/30ML UDC PO SCH ×2 (13:56→21:15)
[2017-12-25] MEDS: METOPROLOL TARTRATE 25MG TABLET PO SCH (20:38)
[2017-12-25] MEDS: CEFTRIAXONE 1 G PREMIX 50 ML IV SCH (21:15)
[2017-12-26] MEDS: ONDANSETRON HCL 4MG/2ML INJ IV PRN ×2 (02:18→22:16)
[2017-12-26 03:58] VITALS: BP 97/55
[2017-12-26] MEDS: LACTULOSE 20G/30ML UDC PO SCH ×4 (05:50→22:13)
[2017-12-26] MEDS ORDERED: NA PHOS,M-B/NA PHOS,DI-BA ENEMA 118ML PR NR (07:30)
[2017-12-26] MEDS: BLOOD SUGAR DIAGNOSTIC STRIP TEST SCH ×4 (07:32→20:57)
[2017-12-26 07:51] LABS: HEMATOCRIT. 46.6 % (42.0-52.0); HEMOGLOBIN. 16.2 g/dL (14.0-18.0); MEAN CORPUSCULAR HEMOGLOBIN 34.4 pg (28.0-32.0); MEAN CORPUSCULAR VOLUME 98.7 fL (80.0-94.0); MEAN PLATELET VOLUME 8.1 fl (7.4-10.4); PLATELET 142 x1000/uL (130-400); RED BLOOD CELL COUNT 4.72 mill/uL (4.7-6.1); RED CELL DISTRIBUTION WIDTH 14.7 % (11.6-14.6)
[2017-12-26 08:00] VITALS: BP 100/69
[2017-12-26] MEDS: INSULIN LISPRO 100 UNITS/ML SUBCUT SCH ×4 (08:10→20:57)
[2017-12-26] MEDS: PANTOPRAZOLE 40MG DR TABLET PO SCH (08:14)
[2017-12-26 08:23] LABS: AMMONIA 37 uMol/L (<32)
[2017-12-26 08:32] LABS: CHLORIDE 93 mEq/L (98-107)
[2017-12-26] MEDS: METOPROLOL TARTRATE 25MG TABLET PO SCH ×2 (08:49→21:00)
[2017-12-26] MEDS: THIAMINE HCL 100MG TABLET PO SCH (08:52)
[2017-12-26] MEDS: FUROSEMIDE 20MG TABLET PO SCH (08:52)
[2017-12-26] MEDS: MULTIVITAMINS,THER W-MINERALS TABLET PO SCH (08:53)
[2017-12-26] MEDS: FOLIC ACID 1MG TABLET PO SCH (08:53)
[2017-12-26 08:54] LABS: CREATINE KINASE 59 IU/L (39-308); CREATINE KINASE MB FRACTION < 1.0 ng/mL (0.5-3.6)
[2017-12-26 12:00] VITALS: BP 90/46
[2017-12-26 12:59] LABS: PLATELET ESTIMATE NORMAL
[2017-12-26] MEDS ORDERED: ALBUMIN HUMAN 12.5G/250ML (5%) IV SCH (13:30)
[2017-12-26 16:00] VITALS: BP 94/62
[2017-12-26] MEDS ORDERED: POTASSIUM CHLORIDE 20MEQ TABLET SR PO NR (16:19)
[2017-12-26] MEDS ORDERED: MAGNESIUM SULFATE 2 GM in DEXTROSE 5% WATER 50 ML IV NR (18:00)
[2017-12-26 20:00] VITALS: BP 106/80
[2017-12-26] MEDS: ZOLPIDEM TARTRATE 5MG TABLET PO PRN (23:21)
[2017-12-26] MEDS: CEFTRIAXONE 1 G PREMIX 50 ML IV SCH (23:22)
[2017-12-27] VITALS (7 sets, daily range): BP systolic 95–125; BP diastolic 51–76
[2017-12-27] MEDS: ONDANSETRON HCL 4MG/2ML INJ IV PRN (04:19)
[2017-12-27] MEDS: LACTULOSE 20G/30ML UDC PO SCH ×2 (05:12→13:24)
[2017-12-27 06:13] LABS: HEMATOCRIT. 45.2 % (42.0-52.0); HEMOGLOBIN. 15.9 g/dL (14.0-18.0); MEAN CORPUSCULAR HEMOGLOBIN 34.5 pg (28.0-32.0); MEAN CORPUSCULAR VOLUME 97.8 fL (80.0-94.0); MEAN PLATELET VOLUME 7.9 fl (7.4-10.4); PLATELET 157 x1000/uL (130-400); RED BLOOD CELL COUNT 4.62 mill/uL (4.7-6.1)
[2017-12-27] MEDS ORDERED: METOCLOPRAMIDE HCL 10MG/2ML VIAL IV PRN (07:15)
[2017-12-27 07:56] LABS: CHLORIDE 94 mEq/L (98-107)
[2017-12-27] MEDS: INSULIN LISPRO 100 UNITS/ML SUBCUT SCH ×3 (08:10→18:10)
[2017-12-27] MEDS: BLOOD SUGAR DIAGNOSTIC STRIP TEST SCH ×3 (08:10→18:28)
[2017-12-27] MEDS: METOPROLOL TARTRATE 25MG TABLET PO SCH (09:00)
[2017-12-27] MEDS: FOLIC ACID 1MG TABLET PO SCH ×2 (10:07→10:10)
[2017-12-27] MEDS: MULTIVITAMINS,THER W-MINERALS TABLET PO SCH ×2 (10:07→10:10)
[2017-12-27] MEDS: PANTOPRAZOLE 40MG DR TABLET PO SCH ×2 (10:07→10:10)
[2017-12-27] MEDS: FUROSEMIDE 20MG TABLET PO SCH ×2 (10:08→10:10)
[2017-12-27] MEDS: THIAMINE HCL 100MG TABLET PO SCH ×2 (10:08→10:10)
[2017-12-27 13:22] LABS: PLATELET ESTIMATE NORMAL
[2017-12-27] MEDS ORDERED: MAGNESIUM OXIDE 400MG TABLET PO SCH (13:30)
[2017-12-27] MEDS ORDERED: METOCLOPRAMIDE HCL 10MG/2ML VIAL IV SCH (18:00)
== END 2017-12-27 20:05 | disposition home or self-care (01) | DRG 720 ==
LOC: ER 09:50 → 7WST 17:38 → ENRESERV 19:45
PROVIDERS: ADMIT Internal Medicine; ATTEND Internal Medicine
PROC: 0W9G3ZZ Drainage of Peritoneal Cavity, Percutaneous Approach (ICD-10-PCS; principal; 2017-12-24)
PROC: BW40ZZZ Ultrasonography of Abdomen (ICD-10-PCS; 2017-12-24)
DX: A41.9 Sepsis, unspecified organism (principal); I47.2 Ventricular tachycardia; E43 Unspecified severe protein-calorie malnutrition; D68.59 Other primary thrombophilia; D68.4 Acquired coagulation factor deficiency; D69.6 Thrombocytopenia, unspecified; E11.22 Type 2 diabetes mellitus with diabetic chronic kidney disease; K70.31 Alcoholic cirrhosis of liver with ascites; E83.42 Hypomagnesemia; I85.10 Secondary esophageal varices without bleeding; N39.0 Urinary tract infection, site not specified; E87.6 Hypokalemia; E66.9 Obesity, unspecified; B18.1 Chronic viral hepatitis B without delta-agent; B18.2 Chronic viral hepatitis C; D53.9 Nutritional anemia, unspecified; D72.819 Decreased white blood cell count, unspecified; D75.89 Other specified diseases of blood and blood-forming organs; E78.00 Pure hypercholesterolemia, unspecified; M19.90 Unspecified osteoarthritis, unspecified site; E78.5 Hyperlipidemia, unspecified; F17.200 Nicotine dependence, unspecified, uncomplicated; F40.240 Claustrophobia; I13.10 Hypertensive heart and chronic kidney disease without heart failure, with stage 1 through stage 4 chronic kidney disease, or unspecified chronic kidney disease; N18.9 Chronic kidney disease, unspecified; K21.9 Gastro-esophageal reflux disease without esophagitis; N40.0 Benign prostatic hyperplasia without lower urinary tract symptoms; R16.1 Splenomegaly, not elsewhere classified; K46.9 Unspecified abdominal hernia without obstruction or gangrene; K56.7 Ileus, unspecified; F10.21 Alcohol dependence, in remission; H26.9 Unspecified cataract; Z68.34 Body mass index [BMI] 34.0-34.9, adult; Z79.899 Other long term (current) drug therapy; R10.9 Unspecified abdominal pain
CPT/HCPCS: 36415; 49083; 71045; 74018; 78580; 80048; 80061; 80076; 80305; 82140; 82550; 82553; 82962; 83036; 83735; 83880; 84443; 84484; 85379; 93005; 93306; 93970; 99285; J0696; J1815; J2405; J2765; J3475; J3480; J3490; J7050; J7060; P9041

== ENCOUNTER 2018-01-06 10:51 | Emergency (ER) | payer MEDICAID, OTHER ==
[~2018-01-06] VITALS: Ht 190.5 cm; Wt 137.0 kg
[~2018-01-06 10:51] MED LIST changes: -ASPI-1159 PO; -CEPH500C2 PO; +FURO-152 PO; -TAMS0.4C31 PO
[2018-01-06 17:14] VITALS: BP 93/58
== END 2018-01-06 17:33 | disposition home or self-care (01) ==
LOC: ER 10:51
DX: K70.31 Alcoholic cirrhosis of liver with ascites (principal); F10.21 Alcohol dependence, in remission; I10 Essential (primary) hypertension; E66.01 Morbid (severe) obesity due to excess calories; Z68.37 Body mass index [BMI] 37.0-37.9, adult
CPT/HCPCS: 99281

== ENCOUNTER 2018-01-24 06:45 | Inpatient (IN) | payer OTHER ==
[~2018-01-24] VITALS: Ht 190.5 cm; Wt 127.0 kg
[2018-01-24] MEDS ORDERED: SODIUM CHLORIDE 0.9% 1,000 ML IV ONE (11:20)
[2018-01-24 12:17] LABS: HEMATOCRIT. 41.4 % (42.0-52.0); HEMOGLOBIN. 14.1 g/dL (14.0-18.0); MEAN CORPUSCULAR HEMOGLOBIN 33.9 pg (28.0-32.0); MEAN CORPUSCULAR VOLUME 99.6 fL (80.0-94.0); MEAN PLATELET VOLUME 7.8 fl (7.4-10.4); PLATELET 141 x1000/uL (130-400); RED BLOOD CELL COUNT 4.16 mill/uL (4.7-6.1); RED CELL DISTRIBUTION WIDTH 15.3 % (11.6-14.6)
[2018-01-24 13:02] LABS: CHLORIDE 100 mEq/L (98-107)
[2018-01-24 13:29] LABS: PLATELET ESTIMATE NORMAL
[2018-01-24] MEDS ORDERED: MORPHINE SULFATE 4 MG/ML CPJ (NOT FOR IM USE) IV STA (13:41)
[2018-01-24] MEDS ORDERED: ONDANSETRON HCL 4MG/2ML INJ IV STA (13:41)
[2018-01-24 15:15] LABS: INR 1.3; PARTIAL THROMBOPLASTIN TIME 29.8 sec (23.4-31.0); PROTHROMBIN TIME 13.1 sec (9.1-11.1)
[2018-01-24] MEDS ORDERED: LIDOCAINE HCL 1% 20ML VIAL (Pyxis) INJ ONE (15:51)
[2018-01-24] MEDS ORDERED: SODIUM BICARBONATE 4% (2.4MEQ) 5ML VIAL IV ONE (15:51)
[2018-01-24] MEDS ORDERED: ACETAMINOPHEN 325MG TABLET PO PRN (18:15)
[2018-01-24] MEDS ORDERED: GUAIFENESIN 200MG/10ML SUGAR FREE UDC PO PRN (18:15)
[2018-01-24] MEDS ORDERED: HYDROCODONE/ACETAMINOPHEN 5/325MG TABLET PO PRN (18:15)
[2018-01-24] MEDS ORDERED: CLONIDINE 0.1MG TABLET PO PRN (18:15)
[2018-01-24] MEDS ORDERED: ONDANSETRON HCL 4MG/2ML INJ IV PRN (18:15)
[2018-01-24] MEDS ORDERED: DOCUSATE SODIUM 100MG CAPSULE PO PRN (18:15)
[2018-01-24] MEDS ORDERED: MORPHINE SULFATE 4 MG/ML CPJ (NOT FOR IM USE) IV PRN (18:30)
[2018-01-24 20:00] VITALS: BP 139/84
[2018-01-24 20:30] VITALS: BP 117/79
[2018-01-25] VITALS (7 sets, daily range): BP systolic 93–116; BP diastolic 53–75
[2018-01-25 05:51] LABS: INR 1.3; PROTHROMBIN TIME 13.5 sec (9.1-11.1)
[2018-01-25 06:17] LABS: CHLORIDE 102 mEq/L (98-107)
[2018-01-25 06:19] LABS: HEMATOCRIT. 38.5 % (42.0-52.0); HEMOGLOBIN. 13.3 g/dL (14.0-18.0); MEAN CORPUSCULAR HEMOGLOBIN 33.9 pg (28.0-32.0); MEAN CORPUSCULAR VOLUME 98.3 fL (80.0-94.0); MEAN PLATELET VOLUME 8.1 fl (7.4-10.4); PLATELET 113 x1000/uL (130-400); RED BLOOD CELL COUNT 3.92 mill/uL (4.7-6.1); RED CELL DISTRIBUTION WIDTH 15.4 % (11.6-14.6)
[2018-01-25] MEDS: LACTULOSE 20G/30ML UDC PO SCH ×2 (08:16→18:01)
[2018-01-25] MEDS: THIAMINE HCL 100MG TABLET PO SCH (08:16)
[2018-01-25 10:22] LABS: NUCLEATED RED BLOOD CELLS 1 /100 WBC
[2018-01-25 10:23] LABS: PLATELET ESTIMATE SLIGHTLY DECREASED
[2018-01-25] MEDS ORDERED: REGADENOSON 0.4 MG/5 ML IV ONE (10:47)
[2018-01-25] MEDS: PANTOPRAZOLE SODIUM 40 MG/VIAL IV SCH (15:27)
[2018-01-25] MEDS ORDERED: MAGNESIUM/ALUMINUM HYDROXIDE/SIMETHICONE 30ML UDC PO PRN (15:30)
[2018-01-25] MEDS ORDERED: MAGNESIUM/ALUMINUM HYDROXIDE/SIMETHICONE 30ML UDC PO SCH (18:00)
[2018-01-26] VITALS: BP 111/69
[2018-01-26 04:00] VITALS: BP 110/76
[2018-01-26 08:00] VITALS: BP 104/70
[2018-01-26] MEDS: PANTOPRAZOLE SODIUM 40 MG/VIAL IV SCH (08:32)
[2018-01-26] MEDS: LACTULOSE 20G/30ML UDC PO SCH ×3 (08:32→17:00)
[2018-01-26] MEDS: THIAMINE HCL 100MG TABLET PO SCH (08:32)
[2018-01-26 11:38] VITALS: BP 92/57
[2018-01-26] MEDS: SODIUM CHLORIDE 0.9% 1,000 ML IV SCH (13:42)
[2018-01-26 15:54] VITALS: BP 102/62
[2018-01-26 20:00] VITALS: BP 112/72
[2018-01-27] VITALS (7 sets, daily range): BP systolic 92–133; BP diastolic 63–80
[2018-01-27] MEDS: SODIUM CHLORIDE 0.9% 1,000 ML IV SCH ×2 (02:43→15:04)
[2018-01-27] MEDS: THIAMINE HCL 100MG TABLET PO SCH (08:59)
[2018-01-27] MEDS: LACTULOSE 20G/30ML UDC PO SCH ×2 (08:59→17:00)
[2018-01-27] MEDS: PANTOPRAZOLE SODIUM 40 MG/VIAL IV SCH (08:59)
== END 2018-01-27 18:40 | disposition home or self-care (01) | DRG 280 ==
LOC: ER 06:45 → EDBEDREQ 15:49 → 6EST 16:54 → EDBEDREQ 16:55 → EDBEDREQTM 16:55 → EDBEDREQSVC 16:55 → ENRESERV 17:03 → SUPCPDRO 18:05
PROVIDERS: ADMIT Hospitalist; ATTEND Hospitalist
PROC: 0W9G3ZZ Drainage of Peritoneal Cavity, Percutaneous Approach (ICD-10-PCS; principal; 2018-01-24)
DX: K70.31 Alcoholic cirrhosis of liver with ascites (principal); E44.0 Moderate protein-calorie malnutrition; B19.20 Unspecified viral hepatitis C without hepatic coma; E78.00 Pure hypercholesterolemia, unspecified; I10 Essential (primary) hypertension; Z79.899 Other long term (current) drug therapy
CPT/HCPCS: 36415; 49083; 71045; 82040; 82140; 83880; 84145; 84484; 93005; 93970; 99285; C9113; J2270; J2405; J2785; J3490; J7030

== ENCOUNTER 2018-02-04 06:45 | Inpatient (IN) | payer OTHER ==
[2018-02-04] VITALS (7 sets, daily range): BP systolic 85–113; BP diastolic 50–73
[~2018-02-04] VITALS: Ht 190.5 cm; Wt 118.9 kg
[2018-02-04] MEDS ORDERED: CEFTRIAXONE 1 G PREMIX 50 ML IV ONE (07:30)
[2018-02-04 08:10] LABS: HEMATOCRIT. 41.3 % (42.0-52.0); HEMOGLOBIN. 14.1 g/dL (14.0-18.0); MEAN CORPUSCULAR VOLUME 99.9 fL (80.0-94.0); MEAN PLATELET VOLUME 7.6 fl (7.4-10.4); PLATELET 127 x1000/uL (130-400); RED BLOOD CELL COUNT 4.13 mill/uL (4.7-6.1); RED CELL DISTRIBUTION WIDTH 15.8 % (11.6-14.6)
[2018-02-04 08:16] LABS: CHLORIDE 103 mEq/L (98-107)
[2018-02-04 08:20] LABS: ETHANOL BLOOD < 10 mg/dL
[2018-02-04 08:27] LABS: PLATELET ESTIMATE SLIGHTLY DECREASED
[2018-02-04 08:39] LABS: INR 1.3; PROTHROMBIN TIME 12.7 sec (9.1-11.1)
[2018-02-04] MEDS ORDERED: ONDANSETRON HCL 4MG/2ML INJ IV PRN (09:30)
[2018-02-04] MEDS ORDERED: LIDOCAINE HCL 1% 20ML VIAL (Pyxis) INJ ONE ×2 (10:35→11:14)
[2018-02-04] MEDS ORDERED: HEPARIN 1,000 UNITS PREMIX 0 ML IV ONE (11:14)
[2018-02-04] MEDS ORDERED: IOHEXOL-300 100 ML BOTTLE ONE (11:14)
[2018-02-04] MEDS ORDERED: FENTANYL CITRATE/PF 50MCG/ML 2ML VIAL ONE (11:16)
[2018-02-04] MEDS ORDERED: MIDAZOLAM HCL 2 MG/2 ML VIAL ONE (11:16)
[2018-02-04] MEDS ORDERED: MORPHINE SULFATE 4 MG/ML CPJ (NOT FOR IM USE) IV PRN (11:45)
[2018-02-04 11:49] LABS: CLARITY URINE CLEAR (CLEAR); COLOR URINE ORANGE (YELLOW); KETONES URINE NEGATIVE (NEGATIVE); LEUKOCYTE ESTERASE URINE TRACE (NEGATIVE); OCCULT BLOOD URINE NEGATIVE (NEGATIVE); PH URINE 5.5 (4.5-8.0); PROTEIN URINE NEGATIVE (NEGATIVE); SPECIFIC GRAVITY URINE 1.024 (1.005-1.030)
[2018-02-04 12:17] LABS: *AMPHETAMINES SCREEN URINE NEGATIVE (NEGATIVE); *BARBITURATES SCREEN URINE NEGATIVE (NEGATIVE); *BENZODIAZEPINES SCREEN URINE NEGATIVE (NEGATIVE); *COCAINE SCREEN URINE NEGATIVE (NEGATIVE); OPIATES URINE SCREEN NEGATIVE (NEGATIVE)
[2018-02-04 12:18] LABS: CANNABINOID URINE SCREEN NEGATIVE (NEGATIVE); PHENCYCLIDINE URINE SCREEN NEGATIVE (NEGATIVE)
[2018-02-04 12:28] LABS: NITRITE URINE POSITIVE (NEGATIVE)
[2018-02-04 12:45] LABS: METHADONE URINE SCREEN NEGATIVE (NEGATIVE)
[2018-02-05] VITALS (13 sets, daily range): BP systolic 84–107; BP diastolic 54–72
[2018-02-05 06:09] LABS: CHLORIDE 103 mEq/L (98-107)
[2018-02-05 06:38] LABS: HEMATOCRIT. 39.5 % (42.0-52.0); HEMOGLOBIN. 13.5 g/dL (14.0-18.0); MEAN CORPUSCULAR HEMOGLOBIN 33.9 pg (28.0-32.0); MEAN CORPUSCULAR VOLUME 99.1 fL (80.0-94.0); MEAN PLATELET VOLUME 7.9 fl (7.4-10.4); PLATELET 126 x1000/uL (130-400); RED BLOOD CELL COUNT 3.98 mill/uL (4.7-6.1); RED CELL DISTRIBUTION WIDTH 15.5 % (11.6-14.6)
[2018-02-05] MEDS: PANTOPRAZOLE 40MG DR TABLET PO SCH (07:44)
[2018-02-05] MEDS: MAGNESIUM OXIDE 400MG TABLET PO SCH (07:52)
[2018-02-05] MEDS ORDERED: MAGNESIUM 2 G PREMIX 50 ML IV NR (08:00)
[2018-02-05] MEDS ORDERED: PROPRANOLOL HCL 10MG TABLET PO SCH (09:00)
[2018-02-05] MEDS ORDERED: REGADENOSON 0.4 MG/5 ML IV ONE (09:45)
[2018-02-05] MEDS: CEFTRIAXONE 1 G PREMIX 50 ML IV SCH (10:06)
[2018-02-05 16:22] LABS: PLATELET ESTIMATE NORMAL
[2018-02-06] VITALS (11 sets, daily range): BP systolic 87–121; BP diastolic 40–67
[2018-02-06] MEDS ORDERED: REGADENOSON 0.4 MG/5 ML IV ONE (06:45)
[2018-02-06] MEDS: PANTOPRAZOLE 40MG DR TABLET PO SCH (06:52)
[2018-02-06] MEDS: CEFTRIAXONE 1 G PREMIX 50 ML IV SCH (08:58)
[2018-02-06] MEDS: MAGNESIUM OXIDE 400MG TABLET PO SCH (08:58)
[2018-02-06 09:17] LABS: HEMATOCRIT. 44.3 % (42.0-52.0); HEMOGLOBIN. 15.1 g/dL (14.0-18.0); MEAN CORPUSCULAR HEMOGLOBIN 33.8 pg (28.0-32.0); MEAN CORPUSCULAR VOLUME 99.1 fL (80.0-94.0); MEAN PLATELET VOLUME 7.7 fl (7.4-10.4); PLATELET 142 x1000/uL (130-400); RED BLOOD CELL COUNT 4.47 mill/uL (4.7-6.1); RED CELL DISTRIBUTION WIDTH 15.6 % (11.6-14.6)
[2018-02-06 10:54] LABS: ATYPICAL LYMPHOCYTES 2
[2018-02-06 10:55] LABS: PLATELET ESTIMATE NORMAL
[2018-02-06 11:34] LABS: CHLORIDE 98 mEq/L (98-107)
[2018-02-06] MEDS: ACETAMINOPHEN 325MG TABLET PO PRN (18:32)
[2018-02-07] VITALS (11 sets, daily range): BP systolic 85–120; BP diastolic 51–75
[2018-02-07] MEDS: PANTOPRAZOLE 40MG DR TABLET PO SCH (06:24)
[2018-02-07] MEDS ORDERED: REGADENOSON 0.4 MG/5 ML IV ONE (08:12)
[2018-02-07] MEDS: MAGNESIUM OXIDE 400MG TABLET PO SCH (09:23)
[2018-02-07 11:44] LABS: BASOPHILS % 0.7 % (0.0-2.0); EOSINOPHILS % 2.3 % (0.0-5.0); HEMATOCRIT. 45.7 % (42.0-52.0); HEMOGLOBIN. 15.7 g/dL (14.0-18.0); LYMPHOCYTES % 18.8 % (20.0-50.0); MEAN CORPUSCULAR HEMOGLOBIN 33.9 pg (28.0-32.0); MEAN CORPUSCULAR VOLUME 98.5 fL (80.0-94.0); MEAN PLATELET VOLUME 8.3 fl (7.4-10.4); MONOCYTES % 14.9 % (2.0-8.0); NEUTROPHILS % 63.3 % (40.0-76.0); PLATELET 154 x1000/uL (130-400); RED BLOOD CELL COUNT 4.64 mill/uL (4.7-6.1); RED CELL DISTRIBUTION WIDTH 15.1 % (11.6-14.6)
[2018-02-07 12:24] LABS: CHLORIDE 98 mEq/L (98-107)
[2018-02-07] MEDS: ACETAMINOPHEN 325MG TABLET PO PRN (17:39)
[2018-02-08] VITALS (12 sets, daily range): BP systolic 95–118; BP diastolic 44–76
[2018-02-08] MEDS: PANTOPRAZOLE 40MG DR TABLET PO SCH (06:10)
[2018-02-08] MEDS: MAGNESIUM OXIDE 400MG TABLET PO SCH (09:03)
[2018-02-09] VITALS (10 sets, daily range): BP systolic 95–133; BP diastolic 58–93
[2018-02-09] MEDS: PANTOPRAZOLE 40MG DR TABLET PO SCH (06:18)
[2018-02-09] MEDS: MAGNESIUM OXIDE 400MG TABLET PO SCH (08:20)
[2018-02-09] MEDS ORDERED: SODIUM BICARBONATE 4% (2.4MEQ) 5ML VIAL IV ONE (13:05)
[2018-02-09] MEDS ORDERED: LIDOCAINE HCL 1% 20ML VIAL (Pyxis) INJ ONE (13:06)
[2018-02-09 13:09] LABS: HEMATOCRIT. 44.8 % (42.0-52.0); HEMOGLOBIN. 15.3 g/dL (14.0-18.0); MEAN CORPUSCULAR VOLUME 99.3 fL (80.0-94.0); MEAN PLATELET VOLUME 7.4 fl (7.4-10.4); PLATELET 130 x1000/uL (130-400); RED BLOOD CELL COUNT 4.51 mill/uL (4.7-6.1); RED CELL DISTRIBUTION WIDTH 15.5 % (11.6-14.6)
[2018-02-09 13:21] LABS: INR 1.2; PROTHROMBIN TIME 12.4 sec (9.1-11.1)
[2018-02-09 14:03] LABS: PLATELET ESTIMATE NORMAL
[2018-02-09 14:34] LABS: CHLORIDE 98 mEq/L (98-107)
[2018-02-10] VITALS (11 sets, daily range): BP systolic 91–112; BP diastolic 46–68
[2018-02-10] MEDS: PANTOPRAZOLE 40MG DR TABLET PO SCH (06:43)
[2018-02-10] MEDS: MAGNESIUM OXIDE 400MG TABLET PO SCH (08:28)
[2018-02-10] MEDS ORDERED: LACTULOSE 20G/30ML UDC PO SCH (09:45)
[2018-02-10] MEDS ORDERED: FUROSEMIDE 40MG TABLET PO SCH (10:00)
[2018-02-10] MEDS ORDERED: SODIUM CHLORIDE 0.9% 250 ML IV SCH (10:15)
[2018-02-10] MEDS ORDERED: SODIUM CHLORIDE 0.9% 250 ML IV NR (10:33)
== END 2018-02-10 22:46 | DRG 720 ==
LOC: ER 06:45 → CVICU 09:10 → EDBEDREQ 09:18 → EDBEDREQSVC 09:18 → ENRESERV 10:55 → 3WST 13:48
PROVIDERS: ADMIT Specialist; ATTEND Internal Medicine
PROC: 0W9G3ZZ Drainage of Peritoneal Cavity, Percutaneous Approach (ICD-10-PCS; 2018-02-04)
PROC: 0W9G3ZZ Drainage of Peritoneal Cavity, Percutaneous Approach (ICD-10-PCS; principal; 2018-02-10)
DX: A41.9 Sepsis, unspecified organism (principal); E43 Unspecified severe protein-calorie malnutrition; E87.2 Acidosis; D68.9 Coagulation defect, unspecified; D69.6 Thrombocytopenia, unspecified; E83.42 Hypomagnesemia; I85.00 Esophageal varices without bleeding; K70.31 Alcoholic cirrhosis of liver with ascites; N39.0 Urinary tract infection, site not specified; B18.1 Chronic viral hepatitis B without delta-agent; E66.09 Other obesity due to excess calories; E78.00 Pure hypercholesterolemia, unspecified; E78.5 Hyperlipidemia, unspecified; F10.21 Alcohol dependence, in remission; I10 Essential (primary) hypertension; K21.9 Gastro-esophageal reflux disease without esophagitis; K46.9 Unspecified abdominal hernia without obstruction or gangrene; D53.9 Nutritional anemia, unspecified; Z82.49 Family history of ischemic heart disease and other diseases of the circulatory system; Z79.899 Other long term (current) drug therapy; Z68.32 Body mass index [BMI] 32.0-32.9, adult
CPT/HCPCS: 36415; 49083; 71045; 78452; 80048; 80076; 80305; 82040; 82140; 83605; 83735; 83880; 84145; 84484; 93005; 93017; 93306; 93970; 96365; 97110; 97162; 97530; 99291; A6261; A9500; G0482; J0696; J1644; J2250; J2405; J2785; J3010; J3475; J3490; J7050; Q9967

== ENCOUNTER 2018-02-20 18:11 | Inpatient (IN) | payer OTHER ==
[~2018-02-20] VITALS: Ht 185.4 cm; Wt 121.2 kg
[2018-02-20] MEDS ORDERED: SODIUM CHLORIDE 0.9% 1,000 ML IV ONE (18:31)
[2018-02-20 20:58] LABS: HEMATOCRIT. 39.4 % (42.0-52.0); HEMOGLOBIN. 13.5 g/dL (14.0-18.0); MEAN CORPUSCULAR HEMOGLOBIN 33.6 pg (28.0-32.0); MEAN CORPUSCULAR VOLUME 98.3 fL (80.0-94.0); MEAN PLATELET VOLUME 8.4 fl (7.4-10.4); PLATELET 113 x1000/uL (130-400); RED BLOOD CELL COUNT 4.01 mill/uL (4.7-6.1); RED CELL DISTRIBUTION WIDTH 15.8 % (11.6-14.6)
[2018-02-20 21:09] LABS: INR 1.2; PARTIAL THROMBOPLASTIN TIME 29.2 sec (23.4-31.0)
[2018-02-20 21:13] LABS: CHLORIDE 97 mEq/L (98-107)
[2018-02-20 22:00] LABS: PLATELET ESTIMATE SLIGHTL
[2018-02-20] MEDS ORDERED: SODIUM BICARBONATE 8.4% 1 MEQ/ML 50ML SYR IV ONE (22:00)
[2018-02-20] MEDS ORDERED: ALBUTEROL (0.083%) 2.5MG/3ML NEB HHN ONE (22:00)
[2018-02-20] MEDS ORDERED: SODIUM POLYSTYRENE SULFONATE 15 G/60 ML BOT PO ONE (22:00)
[2018-02-20 22:23] LABS: CLARITY URINE CLEAR (CLEAR); COLOR URINE DARK YELLOW (YELLOW); KETONES URINE TRACE (NEGATIVE); LEUKOCYTE ESTERASE URINE NEGATIVE (NEGATIVE); NITRITE URINE NEGATIVE (NEGATIVE); OCCULT BLOOD URINE NEGATIVE (NEGATIVE); PH URINE 5.5 (4.5-8.0); PROTEIN URINE NEGATIVE (NEGATIVE); SPECIFIC GRAVITY URINE 1.021 (1.005-1.030)
[2018-02-20] MEDS ORDERED: SODIUM POLYSTYRENE SULFONATE 15 G/60 ML BOT PO SCH (22:30)
[2018-02-21] MEDS ORDERED: ACETAMINOPHEN 325MG TABLET PO PRN (00:30)
[2018-02-21] MEDS ORDERED: HYDROCODONE/ACETAMINOPHEN 5/325MG TABLET PO PRN (00:30)
[2018-02-21] MEDS ORDERED: IPRATROPIUM/ALBUTEROL 0.5-3(2.5)MG/3ML NEB INH PRN (00:30)
[2018-02-21] MEDS ORDERED: DOCUSATE SODIUM 100MG CAPSULE PO PRN (00:30)
[2018-02-21] MEDS ORDERED: MAGNESIUM/ALUMINUM HYDROXIDE/SIMETHICONE 30ML UDC PO PRN (00:30)
[2018-02-21] MEDS ORDERED: CLONIDINE 0.1MG TABLET PO PRN (00:30)
[2018-02-21] MEDS: ONDANSETRON HCL 4MG/2ML INJ IV PRN (00:59)
[2018-02-21 06:13] LABS: CREATINE KINASE 52 IU/L (39-308)
[2018-02-21] MEDS: PANTOPRAZOLE 40MG DR TABLET PO SCH (07:50)
[2018-02-21] MEDS ORDERED: LIDOCAINE HCL 1% 20ML VIAL (Pyxis) INJ ONE (08:17)
[2018-02-21] MEDS ORDERED: SODIUM BICARBONATE 4% (2.4MEQ) 5ML VIAL IV ONE (08:17)
[2018-02-21 10:45] VITALS: BP 109/69
[2018-02-21] MEDS: MULTIVITAMINS,THER W-MINERALS TABLET PO SCH (13:09)
[2018-02-21] MEDS: THIAMINE HCL 100MG TABLET PO SCH (13:09)
[2018-02-21] MEDS: FOLIC ACID 1MG TABLET PO SCH (13:09)
[2018-02-21 14:30] LABS: *AMPHETAMINES SCREEN URINE NEGATIVE (NEGATIVE)
[2018-02-21 14:31] LABS: *BARBITURATES SCREEN URINE NEGATIVE (NEGATIVE); *BENZODIAZEPINES SCREEN URINE NEGATIVE (NEGATIVE); *COCAINE SCREEN URINE NEGATIVE (NEGATIVE); METHADONE URINE SCREEN NEGATIVE (NEGATIVE); OPIATES URINE SCREEN NEGATIVE (NEGATIVE)
[2018-02-21 14:32] LABS: CANNABINOID URINE SCREEN NEGATIVE (NEGATIVE); PHENCYCLIDINE URINE SCREEN NEGATIVE (NEGATIVE)
[2018-02-21] MEDS ORDERED: FURO-151 MT (15:07)
[2018-02-21] MEDS ORDERED: PROP10TA10 PO (15:13)
[2018-02-21 16:00] VITALS: BP_SYST 100; BP_SYST 95; BP_DIAS 56
[2018-02-21] MEDS: FUROSEMIDE 40MG TABLET PO SCH (17:00)
[2018-02-21] MEDS ORDERED: CEFTRIAXONE 1 G PREMIX 50 ML IV SCH ×2 (18:00→21:00)
[2018-02-21] MEDS: AZITHROMYCIN 500 MG TABLET PO SCH (18:08)
[2018-02-21 20:06] VITALS: BP 96/60
[2018-02-21 23:51] LABS: CREATINE KINASE 50 IU/L (39-308)
[2018-02-21 23:52] LABS: CREATINE KINASE MB FRACTION 1.1 ng/mL (0.5-3.6)
[2018-02-22] VITALS (7 sets, daily range): BP systolic 98–124; BP diastolic 54–84
[2018-02-22] MEDS: LACTULOSE 20G/30ML UDC PO SCH ×3 (00:09→14:00)
[2018-02-22] MEDS: PANTOPRAZOLE 40MG DR TABLET PO SCH (06:26)
[2018-02-22 08:07] LABS: HEMATOCRIT. 40.7 % (42.0-52.0); HEMOGLOBIN. 13.9 g/dL (14.0-18.0); MEAN CORPUSCULAR HEMOGLOBIN 33.7 pg (28.0-32.0); MEAN CORPUSCULAR VOLUME 98.3 fL (80.0-94.0); MEAN PLATELET VOLUME 7.7 fl (7.4-10.4); PLATELET 101 x1000/uL (130-400); RED BLOOD CELL COUNT 4.14 mill/uL (4.7-6.1); RED CELL DISTRIBUTION WIDTH 15.6 % (11.6-14.6)
[2018-02-22] MEDS: AZITHROMYCIN 500 MG TABLET PO SCH (08:30)
[2018-02-22] MEDS: MULTIVITAMINS,THER W-MINERALS TABLET PO SCH (08:31)
[2018-02-22] MEDS: THIAMINE HCL 100MG TABLET PO SCH (08:31)
[2018-02-22] MEDS: FOLIC ACID 1MG TABLET PO SCH (08:31)
[2018-02-22] MEDS: FUROSEMIDE 40MG TABLET PO SCH (08:32)
[2018-02-22] MEDS: ONDANSETRON HCL 4MG/2ML INJ IV PRN (09:04)
[2018-02-22 09:21] LABS: CHLORIDE 101 mEq/L (98-107)
[2018-02-22 09:32] LABS: LDL CHOLESTEROL 78 mg/dL (5-100)
[2018-02-22 09:35] LABS: HDL CHOLESTEROL 36 mg/dL (40-59)
[2018-02-22 14:21] LABS: PLATELET ESTIMATE SLIGHTLY DECREASED
[2018-02-23] MEDS ORDERED: FAMOTIDINE 20MG TABLET PO SCH (09:00)
== END 2018-02-22 21:00 | DRG 280 ==
LOC: ER 19:44 → EDBEDREQ 22:55 → EDBEDREQTM 22:55 → ENRESERV 02-21 08:53 → 8WST 02-21 10:22
PROVIDERS: ADMIT Internal Medicine; ATTEND Internal Medicine
PROC: 0W9G3ZZ Drainage of Peritoneal Cavity, Percutaneous Approach (ICD-10-PCS; principal; 2018-02-21)
DX: K70.31 Alcoholic cirrhosis of liver with ascites (principal); E43 Unspecified severe protein-calorie malnutrition; D69.6 Thrombocytopenia, unspecified; E87.8 Other disorders of electrolyte and fluid balance, not elsewhere classified; E87.5 Hyperkalemia; E87.1 Hypo-osmolality and hyponatremia; I10 Essential (primary) hypertension; E78.5 Hyperlipidemia, unspecified; E78.00 Pure hypercholesterolemia, unspecified; D64.9 Anemia, unspecified; E66.9 Obesity, unspecified; B18.2 Chronic viral hepatitis C; Z79.899 Other long term (current) drug therapy; Z68.35 Body mass index [BMI] 35.0-35.9, adult
CPT/HCPCS: 36415; 49083; 71045; 80061; 80305; 82140; 82550; 82553; 83880; 84443; 84484; 93005; 96374; 99285; J0696; J2405; J3490; J7030; J7050; J7611

== ENCOUNTER 2018-02-27 08:38 | Emergency (ER) | payer OTHER ==
[~2018-02-27] VITALS: Ht 182.9 cm; Wt 130.0 kg
[~2018-02-27 08:38] MED LIST changes: +FURO-151 MT; -FURO-152 PO
[2018-02-27 10:19] LABS: HEMATOCRIT. 38.9 % (42.0-52.0); HEMOGLOBIN. 13.3 g/dL (14.0-18.0); MEAN CORPUSCULAR HEMOGLOBIN 33.9 pg (28.0-32.0); MEAN CORPUSCULAR VOLUME 99.1 fL (80.0-94.0); MEAN PLATELET VOLUME 7.1 fl (7.4-10.4); PLATELET 117 x1000/uL (130-400); RED BLOOD CELL COUNT 3.92 mill/uL (4.7-6.1); RED CELL DISTRIBUTION WIDTH 15.9 % (11.6-14.6)
[2018-02-27 10:25] LABS: CHLORIDE 102 mEq/L (98-107)
[2018-02-27 10:28] LABS: INR 1.2; PARTIAL THROMBOPLASTIN TIME 28.4 sec (23.4-31.0); PROTHROMBIN TIME 11.9 sec (9.1-11.1)
[2018-02-27 10:29] LABS: ETHANOL BLOOD < 10 mg/dL
[2018-02-27 10:49] LABS: PLATELET ESTIMATE SLIGHTLY DECREASED
[2018-02-27] MEDS ORDERED: SODIUM BICARBONATE 4% (2.4MEQ) 5ML VIAL IV ONE (12:55)
[2018-02-27] MEDS ORDERED: LIDOCAINE HCL 1% 20ML VIAL (Pyxis) INJ ONE (12:55)
[2018-02-27 15:37] VITALS: BP 108/67
== END 2018-02-27 15:58 | disposition home or self-care (01) ==
LOC: ER 08:48
DX: K70.31 Alcoholic cirrhosis of liver with ascites (principal); E78.00 Pure hypercholesterolemia, unspecified; I10 Essential (primary) hypertension; F10.20 Alcohol dependence, uncomplicated; Y90.0 Blood alcohol level of less than 20 mg/100 ml; Z79.899 Other long term (current) drug therapy
CPT/HCPCS: 36415; 49083; 80053; 83690; 85025; 85610; 85730; 99285; G0482; J3490

== ENCOUNTER 2018-03-11 09:56 | Inpatient (IN) | payer MEDICAID, OTHER ==
[~2018-03-11] VITALS: Ht 190.5 cm; Wt 123.0 kg
[2018-03-11] MEDS ORDERED: LIDOCAINE HCL 1% 20ML VIAL (Pyxis) INJ ONE (11:18)
[2018-03-11] MEDS ORDERED: SODIUM BICARBONATE 4% (2.4MEQ) 5ML VIAL IV ONE (11:19)
[2018-03-11 16:35] LABS: INR 1.2; PROTHROMBIN TIME 11.9 sec (9.1-11.1)
[2018-03-11 16:39] LABS: HEMATOCRIT. 44.9 % (42.0-52.0); HEMOGLOBIN. 15.4 g/dL (14.0-18.0); MEAN CORPUSCULAR HEMOGLOBIN 33.9 pg (28.0-32.0); MEAN CORPUSCULAR VOLUME 98.7 fL (80.0-94.0); MEAN PLATELET VOLUME 7.4 fl (7.4-10.4); PLATELET 166 x1000/uL (130-400); RED BLOOD CELL COUNT 4.55 mill/uL (4.7-6.1); RED CELL DISTRIBUTION WIDTH 15.3 % (11.6-14.6)
[2018-03-11 18:12] LABS: PLATELET ESTIMATE NORMAL
[2018-03-11 20:07] LABS: CHLORIDE 91 mEq/L (98-107)
[2018-03-11 22:16] VITALS: BP 106/65
[2018-03-11] MEDS ORDERED: ACETAMINOPHEN 650MG/20.3ML UDC GT PRN (22:45)
[2018-03-11] MEDS ORDERED: CLONIDINE 0.1MG TABLET PO PRN (22:45)
[2018-03-11] MEDS ORDERED: ONDANSETRON HCL 4MG/2ML INJ IV PRN (22:45)
[2018-03-11] MEDS ORDERED: LORAZEPAM 2MG/ML CPJ IV PRN (22:45)
[2018-03-11] MEDS ORDERED: HYDROMORPHONE HCL/PF 2MG/ML CPJ IV PRN (22:45)
[2018-03-11] MEDS ORDERED: ATORVASTATIN (22:59)
[2018-03-11] MEDS ORDERED: GUAIFENESIN/CODEINE 100-10MG/5ML UDC PO PRN (23:15)
[2018-03-12] VITALS: BP 112/87
[2018-03-12] MEDS: SODIUM CHLORIDE 0.9% 1,000 ML IV SCH ×2 (00:01→18:10)
[2018-03-12] MEDS: ENOXAPARIN 40MG/0.4ML SYR SUBCUT SCH ×2 (00:01→09:41)
[2018-03-12 04:00] VITALS: BP 119/69
[2018-03-12 07:45] LABS: HEMOGLOBIN. 13.8 g/dL (14.0-18.0); MEAN CORPUSCULAR HEMOGLOBIN 33.7 pg (28.0-32.0); MEAN CORPUSCULAR VOLUME 97.9 fL (80.0-94.0); MEAN PLATELET VOLUME 7.3 fl (7.4-10.4); PLATELET 177 x1000/uL (130-400); RED BLOOD CELL COUNT 4.08 mill/uL (4.7-6.1); RED CELL DISTRIBUTION WIDTH 15.5 % (11.6-14.6)
[2018-03-12 07:49] LABS: CHLORIDE 92 mEq/L (98-107)
[2018-03-12 08:13] LABS: CLARITY URINE CLEAR (CLEAR); COLOR URINE YELLOW (YELLOW); KETONES URINE NEGATIVE (NEGATIVE); LEUKOCYTE ESTERASE URINE TRACE (NEGATIVE); NITRITE URINE NEGATIVE (NEGATIVE); OCCULT BLOOD URINE NEGATIVE (NEGATIVE); PROTEIN URINE NEGATIVE (NEGATIVE); SPECIFIC GRAVITY URINE 1.018 (1.005-1.030); UROBILINOGEN URINE 0.2 E.U./dL (0.2-1.0)
[2018-03-12 09:00] LABS: *BENZODIAZEPINES SCREEN URINE NEGATIVE (NEGATIVE)
[2018-03-12 09:03] LABS: METHADONE URINE SCREEN NEGATIVE (NEGATIVE)
[2018-03-12 09:06] LABS: *COCAINE SCREEN URINE NEGATIVE (NEGATIVE)
[2018-03-12 09:07] LABS: *AMPHETAMINES SCREEN URINE NEGATIVE (NEGATIVE); *BARBITURATES SCREEN URINE NEGATIVE (NEGATIVE)
[2018-03-12 09:10] LABS: OPIATES URINE SCREEN PRESUMTIVE POSITIVE (NEGATIVE)
[2018-03-12 09:11] LABS: CANNABINOID URINE SCREEN NEGATIVE (NEGATIVE); PHENCYCLIDINE URINE SCREEN NEGATIVE (NEGATIVE)
[2018-03-12 11:15] LABS: PHOSPHORUS 4.2 mg/dL (2.5-4.9)
[2018-03-12 11:21] LABS: CREATINE KINASE MB FRACTION < 1.0 ng/mL (0.5-3.6)
[2018-03-12 11:35] LABS: PLATELET ESTIMATE NORMAL
[2018-03-12 12:00] VITALS: BP 92/53
[2018-03-12 12:40] LABS: CREATINE KINASE 58 IU/L (39-308)
[2018-03-12 16:10] VITALS: BP 100/55
[2018-03-12] MEDS ORDERED: MAGNESIUM 2 G PREMIX 50 ML IV NR (18:00)
[2018-03-12] MEDS ORDERED: SODIUM CHLORIDE 0.9% 500 ML IV SCH (19:30)
[2018-03-12 20:11] VITALS: BP 76/38
[2018-03-12] MEDS: MIDODRINE HCL 5MG TABLET PO SCH (20:28)
[2018-03-12] MEDS: ENOXAPARIN 30MG/0.3ML SYR SUBCUT SCH (20:57)
[2018-03-12 21:55] VITALS: BP 97/55
[2018-03-13] VITALS (7 sets, daily range): BP systolic 84–121; BP diastolic 47–82
[2018-03-13 00:35] LABS: CREATINE KINASE 38 IU/L (39-308)
[2018-03-13 00:36] LABS: CREATINE KINASE MB FRACTION 1.1 ng/mL (0.5-3.6)
[2018-03-13] MEDS: ENOXAPARIN 30MG/0.3ML SYR SUBCUT SCH ×2 (10:39→21:00)
[2018-03-13] MEDS: SODIUM CHLORIDE 0.9% 1,000 ML IV SCH (10:40)
[2018-03-13] MEDS: MIDODRINE HCL 5MG TABLET PO SCH ×3 (10:40→17:55)
[2018-03-14] VITALS: BP 96/52
[2018-03-14] MEDS: SODIUM CHLORIDE 0.9% 1,000 ML IV SCH (01:22)
[2018-03-14 04:00] VITALS: BP 103/63
[2018-03-14 08:00] VITALS: BP 99/58
[2018-03-14] MEDS: MIDODRINE HCL 5MG TABLET PO SCH (09:33)
[2018-03-14] MEDS: ENOXAPARIN 30MG/0.3ML SYR SUBCUT SCH (09:34)
[2018-03-14 12:00] VITALS: BP 119/78
[2018-03-14 12:02] VITALS: BP 119/78
== END 2018-03-14 12:25 | disposition home or self-care (01) ==
LOC: ER 09:56 → 6WST 18:03 → ENRESERV 19:35
PROVIDERS: ADMIT Internal Medicine Nephrology; ATTEND Internal Medicine Nephrology
PROC: 0W9G3ZZ Drainage of Peritoneal Cavity, Percutaneous Approach (ICD-10-PCS; principal; 2018-03-11)
DX: K74.60 Unspecified cirrhosis of liver (principal); E43 Unspecified severe protein-calorie malnutrition; R18.8 Other ascites; E83.42 Hypomagnesemia; E87.1 Hypo-osmolality and hyponatremia; D64.9 Anemia, unspecified; R07.89 Other chest pain; N39.0 Urinary tract infection, site not specified; F10.20 Alcohol dependence, uncomplicated; E78.00 Pure hypercholesterolemia, unspecified; I10 Essential (primary) hypertension; Z79.899 Other long term (current) drug therapy; Z68.33 Body mass index [BMI] 33.0-33.9, adult
CPT/HCPCS: 36415; 49083; 71045; 80048; 80305; 82140; 82550; 82553; 83735; 83880; 84100; 84484; 86803; 93005; 93306; 99285; A6261; J1170; J1650; J3475; J3490

== ENCOUNTER 2018-03-17 12:29 | Inpatient (IN) | payer OTHER, MEDICAID ==
[~2018-03-17] VITALS: Ht 190.5 cm; Wt 129.7 kg
[~2018-03-17 12:29] MED LIST changes: +ATORVASTATIN
[2018-03-17] MEDS ORDERED: MORPHINE SULFATE 4 MG/ML CPJ (NOT FOR IM USE) IV STA (12:57)
[2018-03-17] MEDS ORDERED: MORPHINE SULFATE 10 MG/ML CPJ IV NR (13:15)
[2018-03-17] MEDS ORDERED: ONDANSETRON HCL 4MG/2ML INJ IV ONE (13:30)
[2018-03-17] MEDS ORDERED: SODIUM CHLORIDE 0.9% 1,000 ML IV ONE (14:15)
[2018-03-17 14:24] LABS: HEMOGLOBIN. 12.9 g/dL (14.0-18.0); MEAN CORPUSCULAR HEMOGLOBIN 33.8 pg (28.0-32.0); MEAN CORPUSCULAR VOLUME 99.1 fL (80.0-94.0); MEAN PLATELET VOLUME 6.8 fl (7.4-10.4); PLATELET 151 x1000/uL (130-400); RED BLOOD CELL COUNT 3.83 mill/uL (4.7-6.1); RED CELL DISTRIBUTION WIDTH 15.3 % (11.6-14.6)
[2018-03-17 14:29] LABS: CHLORIDE 104 mEq/L (98-107)
[2018-03-17 14:30] LABS: INR 1.2; PROTHROMBIN TIME 11.8 sec (9.1-11.1)
[2018-03-17] MEDS ORDERED: ALBUMIN HUMAN 25GM/100ML (25%) IV ONE (14:45)
[2018-03-17 15:37] LABS: PLATELET ESTIMATE NORMAL
[2018-03-17] MEDS ORDERED: ACETAMINOPHEN 325MG TABLET PO PRN (18:00)
[2018-03-17] MEDS ORDERED: ONDANSETRON HCL 4MG/2ML INJ IV PRN (18:00)
[2018-03-17] MEDS ORDERED: HYDROCODONE/ACETAMINOPHEN 5/325MG TABLET PO PRN (18:00)
[2018-03-17 19:25] LABS: CLARITY URINE CLEAR (CLEAR); COLOR URINE DARK YELLOW (YELLOW); KETONES URINE TRACE (NEGATIVE); LEUKOCYTE ESTERASE URINE TRACE (NEGATIVE); NITRITE URINE NEGATIVE (NEGATIVE); OCCULT BLOOD URINE NEGATIVE (NEGATIVE); PH URINE 5.5 (4.5-8.0); PROTEIN URINE NEGATIVE (NEGATIVE)
[2018-03-17 20:00] VITALS: BP 99/66
[2018-03-17 21:55] VITALS: BP 99/66
[2018-03-17] MEDS ORDERED: FUROSEMIDE 40MG TABLET PO SCH (22:15)
[2018-03-18] VITALS (7 sets, daily range): BP systolic 84–98; BP diastolic 21–58
[2018-03-18 06:30] LABS: HEMATOCRIT. 38.1 % (42.0-52.0); HEMOGLOBIN. 13.1 g/dL (14.0-18.0); MEAN CORPUSCULAR HEMOGLOBIN 34.1 pg (28.0-32.0); MEAN PLATELET VOLUME 6.8 fl (7.4-10.4); PLATELET 148 x1000/uL (130-400); RED BLOOD CELL COUNT 3.85 mill/uL (4.7-6.1); RED CELL DISTRIBUTION WIDTH 15.5 % (11.6-14.6)
[2018-03-18 06:34] LABS: CHLORIDE 102 mEq/L (98-107)
[2018-03-18] MEDS ORDERED: SPIRONOLACTONE 50MG TABLET PO SCH (09:00)
[2018-03-18] MEDS ORDERED: SODIUM BICARBONATE 4% (2.4MEQ) 5ML VIAL IV ONE (09:24)
[2018-03-18] MEDS ORDERED: LIDOCAINE HCL 1% 20ML VIAL (Pyxis) INJ ONE (09:24)
[2018-03-18] MEDS ORDERED: MIDODRINE HCL 5MG TABLET PO SCH (09:45)
[2018-03-18 10:43] LABS: PLATELET ESTIMATE NORMAL
[2018-03-18] MEDS ORDERED: FUROSEMIDE 40MG TABLET PO SCH (21:00)
[2018-03-19] MEDS ORDERED: SPIRONOLACTONE 50MG TABLET PO SCH (09:00)
== END 2018-03-18 18:27 | disposition home or self-care (01) | DRG 469 ==
LOC: ER 13:07 → 7WST 16:34 → EDBEDREQ 16:40 → ENRESERV 18:02
PROVIDERS: ADMIT Internal Medicine; ATTEND Internal Medicine
PROC: 0W9G3ZZ Drainage of Peritoneal Cavity, Percutaneous Approach (ICD-10-PCS; principal; 2018-03-18)
DX: N17.0 Acute kidney failure with tubular necrosis (principal); E43 Unspecified severe protein-calorie malnutrition; R18.8 Other ascites; K74.60 Unspecified cirrhosis of liver; E78.00 Pure hypercholesterolemia, unspecified; I10 Essential (primary) hypertension; E78.5 Hyperlipidemia, unspecified; F10.21 Alcohol dependence, in remission; E66.9 Obesity, unspecified; D64.9 Anemia, unspecified; Z79.899 Other long term (current) drug therapy; Z68.35 Body mass index [BMI] 35.0-35.9, adult
CPT/HCPCS: 36415; 49083; 93005; 96361; 96374; 96375; 97162; 99285; J2270; J2405; J3490; J7030; P9047

== ENCOUNTER 2018-03-24 15:38 | Inpatient (IN) | payer OTHER, MEDICAID ==
[~2018-03-24] VITALS: Ht 190.5 cm; Wt 123.4 kg
[~2018-03-24 15:38] MED LIST changes: -LACT10SO7 PO
[2018-03-24 16:52] LABS: EOSINOPHILS % 2.9 % (0.0-5.0); HEMATOCRIT. 40.5 % (42.0-52.0); HEMOGLOBIN. 13.6 g/dL (14.0-18.0); LYMPHOCYTES % 13.2 % (20.0-50.0); MEAN CORPUSCULAR HEMOGLOBIN 33.2 pg (28.0-32.0); MEAN PLATELET VOLUME 7.7 fl (7.4-10.4); MONOCYTES % 13.9 % (2.0-8.0); PLATELET 141 x1000/uL (130-400); RED BLOOD CELL COUNT 4.09 mill/uL (4.7-6.1); RED CELL DISTRIBUTION WIDTH 15.6 % (11.6-14.6)
[2018-03-24 16:57] LABS: CHLORIDE 103 mEq/L (98-107); INR 1.2
[2018-03-24] MEDS ORDERED: CEFTRIAXONE 1 G PREMIX 50 ML IV STA (19:07)
[2018-03-24] MEDS ORDERED: AZITHROMYCIN 500 MG in DEXT 5% WATER 250 ML IV STA (19:07)
[2018-03-24] MEDS ORDERED: CLONIDINE 0.1MG TABLET PO PRN (21:00)
[2018-03-24] MEDS ORDERED: HYDROMORPHONE HCL/PF 2MG/ML CPJ IV PRN (21:00)
[2018-03-24] MEDS ORDERED: DIPHENHYDRAMINE 50MG/ML VIAL IV PRN (21:00)
[2018-03-24] MEDS ORDERED: LORAZEPAM 2MG/ML CPJ IV PRN (21:00)
[2018-03-24] MEDS ORDERED: ACETAMINOPHEN 325MG TABLET PO PRN (21:00)
[2018-03-24] MEDS ORDERED: DOCUSATE SODIUM 100MG CAPSULE PO PRN (21:00)
[2018-03-24] MEDS ORDERED: HYDROCODONE/ACETAMINOPHEN 10/325MG TABLET PO PRN (21:00)
[2018-03-24] MEDS ORDERED: IPRATROPIUM/ALBUTEROL 0.5-3(2.5)MG/3ML NEB INH PRN (21:00)
[2018-03-24] MEDS ORDERED: MAGNESIUM/ALUMINUM HYDROXIDE/SIMETHICONE 30ML UDC PO PRN (21:00)
[2018-03-24] MEDS ORDERED: GUAIFENESIN 200MG/10ML SUGAR FREE UDC PO PRN (21:00)
[2018-03-24] MEDS ORDERED: HYDRALAZINE 20MG/ML VIAL IV PRN (21:00)
[2018-03-24 22:30] VITALS: BP 101/65
[2018-03-25] VITALS (8 sets, daily range): BP systolic 90–101; BP diastolic 51–65
[2018-03-25 00:49] LABS: CREATINE KINASE 49 IU/L (39-308); CREATINE KINASE MB FRACTION < 1.0 ng/mL (0.5-3.6)
[2018-03-25] MEDS: SODIUM CHLORIDE 0.9% INJ 3ML FLUSH IVF SCH ×3 (06:21→20:54)
[2018-03-25 06:36] LABS: INR 1.2; PROTHROMBIN TIME 12.1 sec (9.1-11.1)
[2018-03-25 06:48] LABS: HEMATOCRIT. 35.7 % (42.0-52.0); HEMOGLOBIN. 12.1 g/dL (14.0-18.0); MEAN CORPUSCULAR HEMOGLOBIN 33.6 pg (28.0-32.0); MEAN CORPUSCULAR VOLUME 98.7 fL (80.0-94.0); MEAN PLATELET VOLUME 7.6 fl (7.4-10.4); PLATELET 123 x1000/uL (130-400); RED BLOOD CELL COUNT 3.62 mill/uL (4.7-6.1); RED CELL DISTRIBUTION WIDTH 15.7 % (11.6-14.6)
[2018-03-25 06:59] LABS: CHLORIDE 103 mEq/L (98-107)
[2018-03-25 07:27] LABS: CREATINE KINASE 36 IU/L (39-308)
[2018-03-25 07:30] LABS: CREATINE KINASE MB FRACTION < 1.0 ng/mL (0.5-3.6)
[2018-03-25] MEDS ORDERED: PNEUMOCOCCAL 23-VAL P-SAC VAC 0.5 ML IM ONE (08:00)
[2018-03-25] MEDS ORDERED: INFLUENZA VIRUS VACCINE(AFLURIA) 0.5ML SYR IM ONE (10:00)
[2018-03-25] MEDS ORDERED: LIDOCAINE HCL 1% 20ML VIAL (Pyxis) INJ ONE (13:21)
[2018-03-25] MEDS ORDERED: SODIUM BICARBONATE 4% (2.4MEQ) 5ML VIAL IV ONE (13:21)
[2018-03-25 20:53] LABS: PLATELET ESTIMATE SLIGHTLY DECREASED
[2018-03-26] VITALS: BP 110/58
[2018-03-26 04:00] VITALS: BP 110/64
[2018-03-26] MEDS: SODIUM CHLORIDE 0.9% INJ 3ML FLUSH IVF SCH (05:34)
[2018-03-26 08:00] VITALS: BP 96/53
[2018-03-26 11:31] VITALS: BP 98/61
[2018-03-26 12:00] VITALS: BP 95/62
== END 2018-03-26 13:48 | disposition home or self-care (01) ==
LOC: ER 16:17 → 7WST 18:54 → ENRESERV 20:20
PROVIDERS: ADMIT Internal Medicine; ATTEND Internal Medicine
PROC: 0W9G3ZZ Drainage of Peritoneal Cavity, Percutaneous Approach (ICD-10-PCS; principal; 2018-03-25)
DX: K74.60 Unspecified cirrhosis of liver (principal); R18.8 Other ascites; E46 Unspecified protein-calorie malnutrition; I50.9 Heart failure, unspecified; I11.0 Hypertensive heart disease with heart failure; E78.5 Hyperlipidemia, unspecified; D72.829 Elevated white blood cell count, unspecified; Z68.34 Body mass index [BMI] 34.0-34.9, adult; Z79.899 Other long term (current) drug therapy
CPT/HCPCS: 36415; 49083; 71045; 82550; 82553; 84484; 90686; 90732; 93005; 96365; 96375; 99285; J0456; J0696; J3490; J7060

== ENCOUNTER 2018-04-06 09:31 | Emergency (ER) | payer OTHER, MEDICAID ==
[~2018-04-06] VITALS: Ht 190.5 cm; Wt 167.0 kg
[2018-04-06 12:21] LABS: BASOPHILS % 1.7 % (0.0-2.0); HEMATOCRIT. 43.8 % (42.0-52.0); HEMOGLOBIN. 14.7 g/dL (14.0-18.0); LYMPHOCYTES % 18.4 % (20.0-50.0); MEAN CORPUSCULAR HEMOGLOBIN 33.1 pg (28.0-32.0); MEAN CORPUSCULAR VOLUME 98.8 fL (80.0-94.0); MEAN PLATELET VOLUME 7.9 fl (7.4-10.4); MONOCYTES % 14.8 % (2.0-8.0); NEUTROPHILS % 62.1 % (40.0-76.0); PLATELET 181 x1000/uL (130-400); RED BLOOD CELL COUNT 4.43 mill/uL (4.7-6.1); RED CELL DISTRIBUTION WIDTH 15.5 % (11.6-14.6)
[2018-04-06 12:22] LABS: INR 1.2; PROTHROMBIN TIME 11.9 sec (9.1-11.1)
[2018-04-06 12:25] LABS: CHLORIDE 102 mEq/L (98-107)
[2018-04-06] MEDS ORDERED: SODIUM BICARBONATE 4% (2.4MEQ) 5ML VIAL IV ONE (12:43)
[2018-04-06] MEDS ORDERED: LIDOCAINE HCL 1% 20ML VIAL (Pyxis) INJ ONE (12:43)
[2018-04-06 12:57] LABS: CLARITY URINE CLEAR (CLEAR); COLOR URINE ORANGE (YELLOW); KETONES URINE TRACE (NEGATIVE); LEUKOCYTE ESTERASE URINE TRACE (NEGATIVE); NITRITE URINE NEGATIVE (NEGATIVE); OCCULT BLOOD URINE NEGATIVE (NEGATIVE); PH URINE 5.5 (4.5-8.0); PROTEIN URINE NEGATIVE (NEGATIVE); SPECIFIC GRAVITY URINE 1.023 (1.005-1.030)
[2018-04-06 19:06] VITALS: BP 117/64
== END 2018-04-06 19:24 | disposition home or self-care (01) ==
LOC: ER 09:31
DX: K70.31 Alcoholic cirrhosis of liver with ascites (principal); I11.0 Hypertensive heart disease with heart failure; I50.9 Heart failure, unspecified; E78.00 Pure hypercholesterolemia, unspecified
CPT/HCPCS: 36415; 49083; 80053; 81003; 83690; 85025; 85610; 87070; 87075; 87205; 89050; 93005; 99284; J3490; Z7610

== ENCOUNTER 2018-04-13 12:09 | Inpatient (IN) | payer OTHER, MEDICAID ==
[~2018-04-13] VITALS: Ht 190.5 cm; Wt 133.4 kg
[2018-04-13 14:37] LABS: CLARITY URINE CLEAR (CLEAR); COLOR URINE ORANGE (YELLOW); KETONES URINE NEGATIVE (NEGATIVE); LEUKOCYTE ESTERASE URINE TRACE (NEGATIVE); NITRITE URINE POSITIVE (NEGATIVE); OCCULT BLOOD URINE NEGATIVE (NEGATIVE); PROTEIN URINE NEGATIVE (NEGATIVE); SPECIFIC GRAVITY URINE 1.025 (1.005-1.030)
[2018-04-13 14:40] LABS: BASOPHILS % 0.7 % (0.0-2.0); EOSINOPHILS % 1.6 % (0.0-5.0); LYMPHOCYTES % 12.1 % (20.0-50.0); MEAN CORPUSCULAR VOLUME 98.9 fL (80.0-94.0); MEAN PLATELET VOLUME 7.8 fl (7.4-10.4); MONOCYTES % 13.7 % (2.0-8.0); NEUTROPHILS % 71.9 % (40.0-76.0); PLATELET 143 x1000/uL (130-400); RED BLOOD CELL COUNT 4.25 mill/uL (4.7-6.1); RED CELL DISTRIBUTION WIDTH 15.4 % (11.6-14.6)
[2018-04-13 14:53] LABS: CHLORIDE 103 mEq/L (98-107)
[2018-04-13 14:57] LABS: INR 1.3; PROTHROMBIN TIME 12.7 sec (9.1-11.1)
[2018-04-13] MEDS ORDERED: MORPHINE SULFATE 4 MG/ML CPJ (NOT FOR IM USE) IV ONE (16:30)
[2018-04-13] MEDS ORDERED: CEFTRIAXONE 1 G PREMIX 50 ML IV ONE (17:15)
[2018-04-13] MEDS ORDERED: AZITHROMYCIN 500 MG in DEXT 5% WATER 250 ML IV SCH (18:15)
[2018-04-13 21:15] VITALS: BP 121/73
[2018-04-13 23:00] VITALS: BP 121/73
[2018-04-13] MEDS ORDERED: DEXTROSE 50% WATER 50ML SYRINGE IV PRN (23:30)
[2018-04-13] MEDS ORDERED: CLONIDINE 0.1MG TABLET PO PRN (23:30)
[2018-04-14] VITALS (8 sets, daily range): BP systolic 83–104; BP diastolic 31–63
[2018-04-14] MEDS: FUROSEMIDE 40MG/4ML VIAL IVP SCH ×2 (00:39→10:16)
[2018-04-14] MEDS: MORPHINE SULFATE 4 MG/ML CPJ (NOT FOR IM USE) IV PRN (00:42)
[2018-04-14] MEDS: BLOOD SUGAR DIAGNOSTIC STRIP TEST SCH ×4 (06:27→20:37)
[2018-04-14] MEDS: INSULIN LISPRO 100 UNITS/ML SUBCUT SCH ×4 (06:27→20:40)
[2018-04-14] MEDS ORDERED: THIAMINE HCL 100 MG PO SCH (09:00)
[2018-04-14] MEDS ORDERED: MEDICATION NOT ON FORMULARY EA (Multivitamin (Multi Vitamin Daily) 1 TAB) PO SCH (09:00)
[2018-04-14] MEDS ORDERED: MEDICATION NOT ON FORMULARY EA (Folic Acid 1 MG) PO SCH (09:00)
[2018-04-14] MEDS ORDERED: MEDICATION NOT ON FORMULARY EA (Pantoprazole Sodium 40 MG) PO SCH (09:00)
[2018-04-14 09:08] LABS: HEMATOCRIT. 41.7 % (42.0-52.0); HEMOGLOBIN. 14.1 g/dL (14.0-18.0); MEAN CORPUSCULAR HEMOGLOBIN 33.5 pg (28.0-32.0); MEAN CORPUSCULAR VOLUME 99.1 fL (80.0-94.0); MEAN PLATELET VOLUME 7.6 fl (7.4-10.4); PLATELET 136 x1000/uL (130-400); RED BLOOD CELL COUNT 4.21 mill/uL (4.7-6.1); RED CELL DISTRIBUTION WIDTH 15.6 % (11.6-14.6)
[2018-04-14 09:55] LABS: CHLORIDE 102 mEq/L (98-107)
[2018-04-14 10:09] LABS: PLATELET ESTIMATE NORMAL
[2018-04-14] MEDS: PANTOPRAZOLE SODIUM 40 MG/VIAL IV SCH (10:16)
[2018-04-14] MEDS: ONDANSETRON HCL 4MG/2ML INJ IV PRN (10:16)
[2018-04-14] MEDS: MULTIVITAMINS,THER W-MINERALS TABLET PO SCH (10:17)
[2018-04-14] MEDS: THIAMINE HCL 100MG TABLET PO SCH (10:17)
[2018-04-14] MEDS: FOLIC ACID 1MG TABLET PO SCH (10:17)
[2018-04-14] MEDS: ACETAMINOPHEN 325MG TABLET PO PRN (13:21)
[2018-04-14] MEDS ORDERED: SODIUM BICARBONATE 4% (2.4MEQ) 5ML VIAL IV ONE (14:16)
[2018-04-14] MEDS ORDERED: LIDOCAINE HCL 1% 20ML VIAL (Pyxis) INJ ONE (14:16)
[2018-04-14] MEDS ORDERED: ALBUMIN HUMAN 25GM/100ML (25%) IV ONE (16:45)
[2018-04-14] MEDS: ALBUMIN HUMAN 25GM/100ML (25%) IV SCH ×4 (18:11→23:39)
[2018-04-14] MEDS: ATORVASTATIN CALCIUM 10MG TABLET PO SCH (20:37)
[2018-04-14] MEDS ORDERED: SODIUM CHLORIDE 0.9% 500 ML IV ONE (22:00)
[2018-04-14] MEDS: SODIUM CHLORIDE 0.9% 1,000 ML IV SCH (23:34)
[2018-04-15] VITALS (52 sets, daily range): BP systolic 67–130; BP diastolic 34–64
[2018-04-15] MEDS: INSULIN LISPRO 100 UNITS/ML SUBCUT SCH ×4 (06:12→21:00)
[2018-04-15] MEDS: BLOOD SUGAR DIAGNOSTIC STRIP TEST SCH ×4 (06:12→21:00)
[2018-04-15 07:19] LABS: HEMOGLOBIN. 11.4 g/dL (14.0-18.0); MEAN CORPUSCULAR HEMOGLOBIN 33.8 pg (28.0-32.0); MEAN PLATELET VOLUME 7.6 fl (7.4-10.4); PLATELET 82 x1000/uL (130-400); RED BLOOD CELL COUNT 3.37 mill/uL (4.7-6.1)
[2018-04-15] MEDS: FUROSEMIDE 40MG/4ML VIAL IVP SCH (09:00)
[2018-04-15] MEDS: PANTOPRAZOLE SODIUM 40 MG/VIAL IV SCH (10:05)
[2018-04-15] MEDS: THIAMINE HCL 100MG TABLET PO SCH (10:05)
[2018-04-15] MEDS: MULTIVITAMINS,THER W-MINERALS TABLET PO SCH (10:05)
[2018-04-15] MEDS: FOLIC ACID 1MG TABLET PO SCH (10:06)
[2018-04-15] MEDS ORDERED: SODIUM CHLORIDE 0.9% 500 ML IV NR (12:15)
[2018-04-15] MEDS ORDERED: AZITHROMYCIN 500 MG TABLET PO NR (12:15)
[2018-04-15] MEDS ORDERED: CEFTRIAXONE SODIUM 1 G/VIAL IM ONE (12:15)
[2018-04-15] MEDS: ACETAMINOPHEN 325MG TABLET PO PRN (12:31)
[2018-04-15] MEDS: SODIUM CHLORIDE 0.9% 1,000 ML IV SCH (12:36)
[2018-04-15 14:01] LABS: PLATELET ESTIMATE DECREASED
[2018-04-15 14:53] LABS: HEMATOCRIT. 34.1 % (42.0-52.0); HEMOGLOBIN. 11.6 g/dL (14.0-18.0); MEAN CORPUSCULAR HEMOGLOBIN 33.6 pg (28.0-32.0); MEAN CORPUSCULAR VOLUME 98.9 fL (80.0-94.0); PLATELET 80 x1000/uL (130-400); RED BLOOD CELL COUNT 3.45 mill/uL (4.7-6.1); RED CELL DISTRIBUTION WIDTH 15.5 % (11.6-14.6)
[2018-04-15] MEDS: CEFTRIAXONE 1 G PREMIX 50 ML IV SCH (14:57)
[2018-04-15] MEDS: NOREPINEPHRINE 4 MG in DEXT 5% WATER 246 ML IV PRN (15:03)
[2018-04-15 20:07] LABS: PLATELET ESTIMATE DECREASED
[2018-04-15] MEDS: ATORVASTATIN CALCIUM 10MG TABLET PO SCH (21:49)
[2018-04-16] VITALS (60 sets, daily range): BP systolic 70–128; BP diastolic 37–98
[2018-04-16] MEDS: SODIUM CHLORIDE 0.9% 1,000 ML IV SCH ×2 (03:06→09:34)
[2018-04-16] MEDS: NOREPINEPHRINE 4 MG in DEXT 5% WATER 246 ML IV PRN (04:22)
[2018-04-16] MEDS: BLOOD SUGAR DIAGNOSTIC STRIP TEST SCH ×4 (06:45→21:00)
[2018-04-16] MEDS: INSULIN LISPRO 100 UNITS/ML SUBCUT SCH ×4 (06:45→21:06)
[2018-04-16] MEDS: PANTOPRAZOLE SODIUM 40 MG/VIAL IV SCH (09:32)
[2018-04-16] MEDS: AZITHROMYCIN 500 MG TABLET PO SCH (09:32)
[2018-04-16] MEDS: MULTIVITAMINS,THER W-MINERALS TABLET PO SCH (09:32)
[2018-04-16] MEDS: THIAMINE HCL 100MG TABLET PO SCH (09:32)
[2018-04-16] MEDS: FOLIC ACID 1MG TABLET PO SCH (09:32)
[2018-04-16] MEDS: FUROSEMIDE 40MG/4ML VIAL IVP SCH (09:33)
[2018-04-16 11:50] LABS: HEMOGLOBIN. 12.9 g/dL (14.0-18.0); MEAN CORPUSCULAR HEMOGLOBIN 33.4 pg (28.0-32.0); MEAN CORPUSCULAR VOLUME 98.4 fL (80.0-94.0); MEAN PLATELET VOLUME 7.4 fl (7.4-10.4); PLATELET 84 x1000/uL (130-400); RED BLOOD CELL COUNT 3.86 mill/uL (4.7-6.1); RED CELL DISTRIBUTION WIDTH 15.2 % (11.6-14.6)
[2018-04-16 11:57] LABS: CHLORIDE 105 mEq/L (98-107)
[2018-04-16] MEDS ORDERED: SODIUM CHLORIDE 0.9% 500 ML IV NR (12:15)
[2018-04-16 13:22] LABS: PLATELET ESTIMATE DECREASED
[2018-04-16] MEDS: SPIRONOLACTONE 25MG TABLET PO SCH (14:08)
[2018-04-16] MEDS: LACTULOSE 20G/30ML UDC PO SCH ×2 (14:08→21:05)
[2018-04-16] MEDS: CEFTRIAXONE 1 G PREMIX 50 ML IV SCH (14:09)
[2018-04-16] MEDS: ACETAMINOPHEN 325MG TABLET PO PRN (16:54)
[2018-04-16] MEDS: ATORVASTATIN CALCIUM 10MG TABLET PO SCH (21:04)
[2018-04-17] VITALS (27 sets, daily range): BP systolic 86–144; BP diastolic 44–89
[2018-04-17 05:51] LABS: CHLORIDE 103 mEq/L (98-107); HEMATOCRIT. 35.4 % (42.0-52.0); HEMOGLOBIN. 12.2 g/dL (14.0-18.0); MEAN CORPUSCULAR HEMOGLOBIN 33.4 pg (28.0-32.0); MEAN CORPUSCULAR VOLUME 96.5 fL (80.0-94.0); MEAN PLATELET VOLUME 7.7 fl (7.4-10.4); PLATELET 87 x1000/uL (130-400); RED BLOOD CELL COUNT 3.66 mill/uL (4.7-6.1); RED CELL DISTRIBUTION WIDTH 15.5 % (11.6-14.6)
[2018-04-17] MEDS: BLOOD SUGAR DIAGNOSTIC STRIP TEST SCH ×4 (06:06→21:22)
[2018-04-17] MEDS: INSULIN LISPRO 100 UNITS/ML SUBCUT SCH ×4 (06:06→21:22)
[2018-04-17] MEDS: LACTULOSE 20G/30ML UDC PO SCH ×3 (06:14→21:15)
[2018-04-17] MEDS: AZITHROMYCIN 500 MG TABLET PO SCH (08:26)
[2018-04-17] MEDS: MULTIVITAMINS,THER W-MINERALS TABLET PO SCH (08:26)
[2018-04-17] MEDS: FOLIC ACID 1MG TABLET PO SCH (08:26)
[2018-04-17] MEDS: SPIRONOLACTONE 25MG TABLET PO SCH (08:26)
[2018-04-17] MEDS: THIAMINE HCL 100MG TABLET PO SCH (08:26)
[2018-04-17] MEDS: PANTOPRAZOLE SODIUM 40 MG/VIAL IV SCH (08:26)
[2018-04-17] MEDS: FUROSEMIDE 40MG TABLET PO SCH (08:29)
[2018-04-17 10:59] LABS: PLATELET ESTIMATE DECREASED
[2018-04-17] MEDS: CEFTRIAXONE 1 G PREMIX 50 ML IV SCH (14:11)
[2018-04-17] MEDS: ACETAMINOPHEN 325MG TABLET PO PRN (18:31)
[2018-04-17] MEDS: MORPHINE SULFATE 4 MG/ML CPJ (NOT FOR IM USE) IV PRN (21:15)
[2018-04-17] MEDS: ATORVASTATIN CALCIUM 10MG TABLET PO SCH (21:15)
[2018-04-18] VITALS (12 sets, daily range): BP systolic 91–140; BP diastolic 58–85
[2018-04-18] MEDS: BLOOD SUGAR DIAGNOSTIC STRIP TEST SCH ×4 (06:01→21:04)
[2018-04-18] MEDS: INSULIN LISPRO 100 UNITS/ML SUBCUT SCH ×4 (06:01→21:00)
[2018-04-18] MEDS: LACTULOSE 20G/30ML UDC PO SCH ×3 (06:01→21:05)
[2018-04-18 06:26] LABS: CHLORIDE 99 mEq/L (98-107)
[2018-04-18 06:27] LABS: HEMATOCRIT. 37.8 % (42.0-52.0); HEMOGLOBIN. 12.9 g/dL (14.0-18.0); MEAN CORPUSCULAR HEMOGLOBIN 33.4 pg (28.0-32.0); MEAN CORPUSCULAR VOLUME 97.5 fL (80.0-94.0); MEAN PLATELET VOLUME 8.2 fl (7.4-10.4); PLATELET 90 x1000/uL (130-400); RED BLOOD CELL COUNT 3.88 mill/uL (4.7-6.1); RED CELL DISTRIBUTION WIDTH 15.2 % (11.6-14.6)
[2018-04-18] MEDS: FOLIC ACID 1MG TABLET PO SCH (08:04)
[2018-04-18] MEDS: MULTIVITAMINS,THER W-MINERALS TABLET PO SCH (08:04)
[2018-04-18] MEDS: FUROSEMIDE 40MG TABLET PO SCH (08:04)
[2018-04-18] MEDS: AZITHROMYCIN 500 MG TABLET PO SCH (08:04)
[2018-04-18] MEDS: SPIRONOLACTONE 25MG TABLET PO SCH (08:04)
[2018-04-18] MEDS: THIAMINE HCL 100MG TABLET PO SCH (08:04)
[2018-04-18] MEDS: PANTOPRAZOLE SODIUM 40 MG/VIAL IV SCH (08:04)
[2018-04-18 12:02] LABS: PLATELET ESTIMATE DECREASED
[2018-04-18] MEDS: MORPHINE SULFATE 4 MG/ML CPJ (NOT FOR IM USE) IV PRN (21:06)
[2018-04-18] MEDS: ONDANSETRON HCL 4MG/2ML INJ IV PRN (21:06)
[2018-04-18] MEDS: ATORVASTATIN CALCIUM 10MG TABLET PO SCH (21:06)
[2018-04-19] VITALS (12 sets, daily range): BP systolic 102–145; BP diastolic 63–95
[2018-04-19] MEDS: LACTULOSE 20G/30ML UDC PO SCH ×3 (06:00→21:00)
[2018-04-19] MEDS: BLOOD SUGAR DIAGNOSTIC STRIP TEST SCH ×4 (06:59→20:52)
[2018-04-19] MEDS: INSULIN LISPRO 100 UNITS/ML SUBCUT SCH ×4 (07:20→20:53)
[2018-04-19] MEDS: AZITHROMYCIN 500 MG TABLET PO SCH (08:11)
[2018-04-19] MEDS: THIAMINE HCL 100MG TABLET PO SCH (08:11)
[2018-04-19] MEDS: FUROSEMIDE 40MG TABLET PO SCH (08:12)
[2018-04-19] MEDS: FAMOTIDINE 20MG TABLET PO SCH ×2 (08:12→20:57)
[2018-04-19] MEDS: SPIRONOLACTONE 25MG TABLET PO SCH (08:12)
[2018-04-19] MEDS: FOLIC ACID 1MG TABLET PO SCH (08:12)
[2018-04-19] MEDS: MULTIVITAMINS,THER W-MINERALS TABLET PO SCH (08:13)
[2018-04-19] MEDS ORDERED: LIDOCAINE HCL 1% 20ML VIAL (Pyxis) INJ ONE (11:10)
[2018-04-19] MEDS ORDERED: SODIUM BICARBONATE 4% (2.4MEQ) 5ML VIAL IV ONE (11:11)
[2018-04-19] MEDS ORDERED: ALBUMIN HUMAN 25GM/100ML (25%) IV NR (15:00)
[2018-04-19] MEDS: ATORVASTATIN CALCIUM 10MG TABLET PO SCH (20:57)
[2018-04-19] MEDS ORDERED: MORPHINE SULFATE 4 MG/ML CPJ (NOT FOR IM USE) IV SCH (23:30)
[2018-04-20] VITALS (9 sets, daily range): BP systolic 101–128; BP diastolic 65–79
[2018-04-20] MEDS: LACTULOSE 20G/30ML UDC PO SCH ×2 (06:00→14:00)
[2018-04-20] MEDS: BLOOD SUGAR DIAGNOSTIC STRIP TEST SCH ×3 (07:00→16:47)
[2018-04-20] MEDS: INSULIN LISPRO 100 UNITS/ML SUBCUT SCH ×3 (07:20→16:54)
[2018-04-20] MEDS: FUROSEMIDE 40MG TABLET PO SCH (09:17)
[2018-04-20] MEDS: FOLIC ACID 1MG TABLET PO SCH (09:17)
[2018-04-20] MEDS: SPIRONOLACTONE 25MG TABLET PO SCH (09:17)
[2018-04-20] MEDS: THIAMINE HCL 100MG TABLET PO SCH (09:17)
[2018-04-20] MEDS: AZITHROMYCIN 500 MG TABLET PO SCH (09:17)
[2018-04-20] MEDS: FAMOTIDINE 20MG TABLET PO SCH (09:17)
[2018-04-20] MEDS: MULTIVITAMINS,THER W-MINERALS TABLET PO SCH (09:17)
== END 2018-04-20 17:10 | disposition home health service (06) | DRG 280 ==
LOC: ER 12:09 → 8WST 17:22 → EDBEDREQ 17:27 → EDBEDREQSVC 17:27 → ENRESERV 20:19 → MICUSO 04-15 12:58 → 3WST 04-17 14:31 → 8WST 04-20 10:49
PROVIDERS: ADMIT Internal Medicine; ATTEND Internal Medicine
PROC: 0W9G3ZZ Drainage of Peritoneal Cavity, Percutaneous Approach (ICD-10-PCS; principal; 2018-04-14)
PROC: 0W9G3ZZ Drainage of Peritoneal Cavity, Percutaneous Approach (ICD-10-PCS; 2018-04-19)
DX: K70.31 Alcoholic cirrhosis of liver with ascites (principal); N17.0 Acute kidney failure with tubular necrosis; R57.9 Shock, unspecified; J18.1 Lobar pneumonia, unspecified organism; E44.0 Moderate protein-calorie malnutrition; D69.6 Thrombocytopenia, unspecified; I11.0 Hypertensive heart disease with heart failure; I50.9 Heart failure, unspecified; E87.5 Hyperkalemia; E11.9 Type 2 diabetes mellitus without complications; E78.5 Hyperlipidemia, unspecified; J44.9 Chronic obstructive pulmonary disease, unspecified; Z79.899 Other long term (current) drug therapy; Z68.36 Body mass index [BMI] 36.0-36.9, adult
CPT/HCPCS: 36415; 49083; 71045; 76700; 76705; 80048; 82040; 82140; 82962; 83605; 83615; 83880; 84145; 84484; 85007; 85027; 88108; 88312; 93005; 96365; 96367; 96375; 97162; 99285; A6261; C1729; C9113; G0378; J0456; J0696; J1815; J1940; J2270; J2405; J3490; J7030; J7040; J7060; P9047

== ENCOUNTER 2018-06-14 01:18 | Inpatient (IN) | payer MEDICAID, OTHER ==
[~2018-06-14] VITALS: Ht 190.5 cm; Wt 127.9 kg
[2018-06-14 02:29] LABS: HEMATOCRIT. 41.9 % (42.0-52.0); HEMOGLOBIN. 14.4 g/dL (14.0-18.0); MEAN CORPUSCULAR HEMOGLOBIN 33.8 pg (28.0-32.0); MEAN CORPUSCULAR VOLUME 98.6 fL (80.0-94.0); MEAN PLATELET VOLUME 7.8 fl (7.4-10.4); PLATELET 170 x1000/uL (130-400); RED BLOOD CELL COUNT 4.25 mill/uL (4.7-6.1); RED CELL DISTRIBUTION WIDTH 15.3 % (11.6-14.6)
[2018-06-14 02:33] LABS: CHLORIDE 97 mEq/L (98-107)
[2018-06-14 02:38] LABS: ETHANOL BLOOD < 10 mg/dL; INR 1.2; PROTHROMBIN TIME 11.7 sec (9.1-11.1)
[2018-06-14 03:29] LABS: PLATELET ESTIMATE NORMAL
[2018-06-14] MEDS ORDERED: ACETAMINOPHEN 500MG TABLET PO ONE (04:45)
[2018-06-14 06:41] LABS: CLARITY URINE CLEAR (CLEAR); COLOR URINE DARK YELLOW (YELLOW); KETONES URINE TRACE (NEGATIVE); LEUKOCYTE ESTERASE URINE TRACE (NEGATIVE); NITRITE URINE NEGATIVE (NEGATIVE); OCCULT BLOOD URINE NEGATIVE (NEGATIVE); PH URINE 5.5 (4.5-8.0); PROTEIN URINE NEGATIVE (NEGATIVE); SPECIFIC GRAVITY URINE 1.023 (1.005-1.030)
[2018-06-14 06:57] LABS: *AMPHETAMINES SCREEN URINE NEGATIVE (NEGATIVE); *BARBITURATES SCREEN URINE NEGATIVE (NEGATIVE); *BENZODIAZEPINES SCREEN URINE NEGATIVE (NEGATIVE); *COCAINE SCREEN URINE NEGATIVE (NEGATIVE); METHADONE URINE SCREEN NEGATIVE (NEGATIVE)
[2018-06-14 06:58] LABS: CANNABINOID URINE SCREEN NEGATIVE (NEGATIVE); OPIATES URINE SCREEN NEGATIVE (NEGATIVE); PHENCYCLIDINE URINE SCREEN NEGATIVE (NEGATIVE)
[2018-06-14] MEDS ORDERED: IPRATROPIUM/ALBUTEROL 0.5-3(2.5)MG/3ML NEB INH PRN (08:15)
[2018-06-14] MEDS ORDERED: DOCUSATE SODIUM 100MG CAPSULE PO PRN (08:15)
[2018-06-14 08:42] LABS: PHOSPHORUS 3.8 mg/dL (2.5-4.9)
[2018-06-14 10:34] VITALS: BP 100/59
[2018-06-14] MEDS ORDERED: DEXTROSE 50% WATER 50ML SYRINGE IV PRN (11:00)
[2018-06-14] MEDS ORDERED: BLOOD SUGAR DIAGNOSTIC STRIP TEST SCH (12:10)
[2018-06-14] MEDS ORDERED: INSULIN LISPRO 100 UNITS/ML SUBCUT SCH (12:40)
[2018-06-14] MEDS ORDERED: APIXABAN 5 MG TABLET PO SCH (14:15)
[2018-06-14 14:59] LABS: CREATINE KINASE 50 IU/L (39-308)
[2018-06-14 15:00] LABS: CREATINE KINASE MB FRACTION < 1.0 ng/mL (0.5-3.6)
[2018-06-14 16:00] VITALS: BP 110/60
[2018-06-14] MEDS: APIXABAN 5 MG TABLET PO SCH (16:58)
[2018-06-14] MEDS: ONDANSETRON HCL 4MG/2ML INJ IV PRN (16:59)
[2018-06-14 20:00] VITALS: BP 100/60
[2018-06-14] MEDS: GUAIFENESIN 200MG/10ML SUGAR FREE UDC PO PRN (21:38)
[2018-06-14] MEDS: DIPHENHYDRAMINE 50MG/ML VIAL IV PRN (21:38)
[2018-06-15] VITALS: BP 91/52
[2018-06-15 00:43] LABS: CREATINE KINASE 45 IU/L (39-308)
[2018-06-15 00:44] LABS: CREATINE KINASE MB FRACTION < 1.0 ng/mL (0.5-3.6)
[2018-06-15] MEDS: GUAIFENESIN 200MG/10ML SUGAR FREE UDC PO PRN ×3 (03:16→20:01)
[2018-06-15 04:00] VITALS: BP 102/59
[2018-06-15 07:01] LABS: HEMATOCRIT. 33.8 % (42.0-52.0); HEMOGLOBIN. 11.4 g/dL (14.0-18.0); MEAN CORPUSCULAR HEMOGLOBIN 33.4 pg (28.0-32.0); MEAN PLATELET VOLUME 8.1 fl (7.4-10.4); PLATELET 120 x1000/uL (130-400); RED BLOOD CELL COUNT 3.41 mill/uL (4.7-6.1); RED CELL DISTRIBUTION WIDTH 15.3 % (11.6-14.6)
[2018-06-15 07:20] LABS: CHLORIDE 97 mEq/L (98-107)
[2018-06-15 07:39] LABS: LDL CHOLESTEROL 58 mg/dL (5-100)
[2018-06-15 07:42] LABS: HDL CHOLESTEROL 35 mg/dL (40-59)
[2018-06-15 08:00] VITALS: BP 104/63
[2018-06-15] MEDS: APIXABAN 5 MG TABLET PO SCH ×2 (08:30→16:59)
[2018-06-15 12:00] VITALS: BP 99/66
[2018-06-15 12:51] LABS: PLATELET ESTIMATE SLIGHTLY DECREASED
[2018-06-15] MEDS: ACETAMINOPHEN 325MG TABLET PO PRN (14:36)
[2018-06-15 15:37] VITALS: BP 105/61
[2018-06-15 20:00] VITALS: BP 103/64
[2018-06-15] MEDS: ONDANSETRON HCL 4MG/2ML INJ IV PRN (20:01)
[2018-06-15] MEDS: HYDROCODONE/ACETAMINOPHEN 5/325MG TABLET PO PRN (21:02)
[2018-06-16] VITALS: BP 100/70
[2018-06-16 04:00] VITALS: BP 114/57
[2018-06-16 08:00] VITALS: BP 100/71
[2018-06-16 08:22] LABS: HEMATOCRIT. 33.7 % (42.0-52.0); HEMOGLOBIN. 11.7 g/dL (14.0-18.0); MEAN CORPUSCULAR HEMOGLOBIN 34.1 pg (28.0-32.0); MEAN CORPUSCULAR VOLUME 98.6 fL (80.0-94.0); MEAN PLATELET VOLUME 7.7 fl (7.4-10.4); PLATELET 119 x1000/uL (130-400); RED BLOOD CELL COUNT 3.42 mill/uL (4.7-6.1); RED CELL DISTRIBUTION WIDTH 15.1 % (11.6-14.6)
[2018-06-16] MEDS: APIXABAN 5 MG TABLET PO SCH ×2 (09:20→17:52)
[2018-06-16 09:26] LABS: CHLORIDE 97 mEq/L (98-107)
[2018-06-16 12:00] VITALS: BP 93/53
[2018-06-16 15:26] LABS: PLATELET ESTIMATE DECREASED
[2018-06-16] MEDS: HYDROCODONE/ACETAMINOPHEN 5/325MG TABLET PO PRN (18:53)
[2018-06-16 19:57] VITALS: BP 100/58
[2018-06-16] MEDS: DIPHENHYDRAMINE 50MG/ML VIAL IV PRN (22:56)
[2018-06-17] VITALS: BP 101/58
[2018-06-17 04:00] VITALS: BP 108/60
[2018-06-17] MEDS: GUAIFENESIN 200MG/10ML SUGAR FREE UDC PO PRN (06:21)
[2018-06-17 07:35] VITALS: BP 97/63
[2018-06-17] MEDS: APIXABAN 5 MG TABLET PO SCH (09:06)
[2018-06-17] MEDS ORDERED: WARF-67 MT (13:34)
[2018-06-17 16:50] LABS: INR 1.4; PROTHROMBIN TIME 14.4 sec (9.6-11.0)
[2018-06-17] MEDS ORDERED: WARFARIN SODIUM 5MG TABLET PO NR (18:00)
[2018-06-17 20:00] VITALS: BP 119/73
[2018-06-17] MEDS ORDERED: WARFARIN SODIUM 5MG TABLET PO ONE (20:15)
[2018-06-17] MEDS: HYDROCODONE/ACETAMINOPHEN 5/325MG TABLET PO PRN (20:23)
[2018-06-18] VITALS: BP 103/63
[2018-06-18 04:00] VITALS: BP 113/57
[2018-06-18 05:53] LABS: INR 1.3; PROTHROMBIN TIME 13.3 sec (9.6-11.0)
[2018-06-18 07:51] VITALS: BP 101/68
[2018-06-18] MEDS: GUAIFENESIN 200MG/10ML SUGAR FREE UDC PO PRN ×3 (11:38→20:51)
[2018-06-18 12:00] VITALS: BP 135/69
[2018-06-18 16:40] VITALS: BP 109/69
[2018-06-18] MEDS ORDERED: WARFARIN SODIUM 7.5MG TABLET PO SCH (18:00)
[2018-06-18 20:00] VITALS: BP 107/66
[2018-06-18] MEDS: HYDROCODONE/ACETAMINOPHEN 5/325MG TABLET PO PRN (20:53)
[2018-06-19] VITALS: BP 102/68
[2018-06-19 04:00] VITALS: BP 113/72
[2018-06-19 06:58] LABS: INR 1.6; PROTHROMBIN TIME 15.6 sec (9.6-11.0)
[2018-06-19 07:07] LABS: CHLORIDE 95 mEq/L (98-107)
[2018-06-19 07:42] LABS: HEMATOCRIT. 35.2 % (42.0-52.0); MEAN CORPUSCULAR HEMOGLOBIN 33.4 pg (28.0-32.0); MEAN CORPUSCULAR VOLUME 97.8 fL (80.0-94.0); MEAN PLATELET VOLUME 7.8 fl (7.4-10.4); PLATELET 128 x1000/uL (130-400); RED CELL DISTRIBUTION WIDTH 14.8 % (11.6-14.6)
[2018-06-19 08:24] VITALS: BP 104/69
[2018-06-19 12:28] VITALS: BP 101/66
[2018-06-19 13:08] LABS: PLATELET ESTIMATE NORMAL
[2018-06-19] MEDS: ACETAMINOPHEN 325MG TABLET PO PRN (13:54)
[2018-06-19 16:39] VITALS: BP 108/60
[2018-06-19] MEDS ORDERED: WARFARIN SODIUM 7.5MG TABLET PO NR (18:00)
[2018-06-19 20:00] VITALS: BP 104/69
[2018-06-20] VITALS: BP 105/69
[2018-06-20] MEDS: GUAIFENESIN 200MG/10ML SUGAR FREE UDC PO PRN (00:52)
[2018-06-20] MEDS: ACETAMINOPHEN 325MG TABLET PO PRN (00:53)
[2018-06-20 04:00] VITALS: BP 115/83
[2018-06-20 05:42] LABS: INR 2.9; PROTHROMBIN TIME 28.5 sec (9.6-11.0)
[2018-06-20] MEDS ORDERED: POTASSIUM CHLORIDE 20MEQ TABLET SR PO SCH (06:30)
[2018-06-20 08:00] VITALS: BP 106/75
[2018-06-20 12:00] VITALS: BP 102/60
[2018-06-21] MEDS ORDERED: APIXABAN 5 MG TABLET PO SCH (17:00)
== END 2018-06-20 16:40 | disposition home or self-care (01) | DRG 197 ==
LOC: ER 01:18 → 8WST 04:23 → EDBEDREQTM 04:26 → EDBEDREQ 04:26 → ENRESERV 08:37
PROVIDERS: ADMIT Internal Medicine; ATTEND Internal Medicine
DX: I82.412 Acute embolism and thrombosis of left femoral vein (principal); K70.31 Alcoholic cirrhosis of liver with ascites; D72.825 Bandemia; E11.9 Type 2 diabetes mellitus without complications; E78.5 Hyperlipidemia, unspecified; I10 Essential (primary) hypertension; J44.9 Chronic obstructive pulmonary disease, unspecified; K21.9 Gastro-esophageal reflux disease without esophagitis; Z79.899 Other long term (current) drug therapy; Z79.01 Long term (current) use of anticoagulants
CPT/HCPCS: 36415; 71045; 80048; 80061; 80305; 80320; 82248; 82550; 82553; 82962; 83036; 83735; 83880; 84100; 84443; 84484; 93005; 93970; 97162; 97166; 99285; J1200; J2405; G0480